=== PATIENT | female | born 1935 | race Caucasian/White ===

== ENCOUNTER 2018-03-04 17:37 | Inpatient (IN) | payer OTHER ==
[~2018-03-04] VITALS: Ht 165.1 cm; Wt 97.7 kg
[~2018-03-04 17:37] MED LIST: ALBIPROI INH; ALBU90OI INH; ASCO500 PO; ASPI325 PO; ATOR20 PO; AZIT250 PO; BECL40OI INH; BENZ100A PO; CALCAVITD PO; CALCIUM 500 +1 EAC2 PO; CALCIUM CIT-VI1 EAC1 PO; CETI10 PO; CETI5 PO; CHOL10002; CHOL10002 PO; CLOP75; CODGUAEL PO; CYAN1000 PO; CYAN500 PO; Citrate Of Mag300 ML PO; DIPASPER PO; DOCU100 PO; FISH1000 PO; FLUSAL2505 IH; FLUSAL2505 INH; FLUT.05NI; GABA100 PO; GLIP5; GLIP5 PO; GUAI200 PO; Glucophage1000 MG PO; HYDACE5 PO; Hair, Skin & N1 EACH PO; INSLI100I SC; INSULANI SC; INSULANPEN SC; ISOMON20 PO; ISOMON60ER PO; LEVFLO500 PO; LEVSOD25; LEVSOD75 PO; LOVA40 PO; MAGNESIUM WITH ZINC PO; MAGOXI400 PO; MECL12.5 PO; MECL25 PO; MELA3 PO; METF500; METF500 PO; METO100ER PO; METO50ER PO; METPRE4DP PO; MULVITMINF PO; NAPR220 PO; NITR.4SL SL; Nitrostat0.4 MG SL; Norco 5-325 Ta1 EACH PO; OMEP20ER PO; OMEPRAZOLE MAGN20 MG PO; OXYACE5T PO; PRED10 PO; Percocet 5-3251 EACH PO; QUIN10 PO; RXOXYACE PO; Senna8.6 M1 PO; Super B-50 Com1 EACH PO; TRAM50 PO; Triamcinolone A15 GM TOP; VENL75ER PO; VITB2 PO; Vitamin C1000 M1 PO; ZOLP5 PO
[2018-03-04 18:59] LABS: BASOPHILS ABSOLUTE AUTO 0.03 K/mm3 (0.00-0.23); BASOPHILS PERCENT AUTO 1 % (0-2); EOSINOPHILS ABSOLUTE AUTO 0.19 K/mm3 (0.00-0.68); EOSINOPHILS PERCENT AUTO 3 % (0-6); Hematocrit 35.7 % (33.0-51.0); Hemoglobin 11.9 g/dL (11.5-16.0); IMMATURE GRAN ABSOLUTE AUTO 0.01 K/mm3 (0.00-0.10); IMMATURE GRAN PERCENT AUTO 0 % (0-1); LYMPHOCYTES ABSOLUTE AUTO 1.49 K/mm3 (0.84-5.20); LYMPHOCYTES PERCENT AUTO 23 % (21-46); MONOCYTES PERCENT AUTO 8 % (4-13); Mean Corpuscular HGB 33.4 pg (26.0-34.0); Mean Corpuscular HGB Conc 33.3 g/dL (31.5-36.5); Mean Corpuscular Volume 100 fL (80-100); Mean Platelet Volume 9.9 fL (9.1-12.4); NEUTROPHILS ABSOLUTE AUTO 4.41 K/mm3 (1.96-9.15); NEUTROPHILS PERCENT AUTO 66 % (41-73); Platelet Count 227 K/mm3 (150-400); RDW Coefficient Variation 12.8 % (11.7-14.2); RDW Standard Deviation 46.5 fL (35.1-46.3); Red Blood Cell Count 3.56 M/mm3 (3.80-5.20); White Blood Cell Count 6.63 K/mm3 (4.00-11.30)
[2018-03-04 19:19] LABS: Alanine Aminotransfer (ALT/SGP 14 U/L (12-78); Albumin/Globulin Ratio 0.9 (0.8-1.8); Alk Phos 81 U/L (50-136); Anion Gap 6 mmol/L (6-16); Aspartate Aminotrans (AST/SGOT 18 U/L (12-37); Bilirubin, Total 0.3 mg/dL (0.1-1.0); Blood Urea Nitrogen 17 mg/dL (8-24); Bun/Creatinine Ratio 18.7 (12.0-20.0); CO2, Blood 30 mmol/L (21-32); Calcium, Blood 8.7 mg/dL (8.5-10.1); Chloride, Blood 105 mmol/L (98-108); Creatinine, Blood 0.91 mg/dL (0.40-1.00); Globulin, Blood 3.3 g/dL (2.2-4.0); Glomerular Filtration Rate >60 (60-); Glucose, Blood 103 mg/dL (70-99); Potassium, Blood 4.4 mmol/L (3.5-5.5); Sodium, Blood 141 mmol/L (136-145); Total Protein, Blood 6.3 g/dL (6.4-8.2)
[2018-03-05 01:03] LABS: BASOPHILS ABSOLUTE AUTO 0.03 K/mm3 (0.00-0.23); BASOPHILS PERCENT AUTO 0 % (0-2); EOSINOPHILS ABSOLUTE AUTO 0.14 K/mm3 (0.00-0.68); EOSINOPHILS PERCENT AUTO 2 % (0-6); Hematocrit 34.9 % (33.0-51.0); Hemoglobin 11.5 g/dL (11.5-16.0); IMMATURE GRAN ABSOLUTE AUTO 0.02 K/mm3 (0.00-0.10); IMMATURE GRAN PERCENT AUTO 0 % (0-1); LYMPHOCYTES ABSOLUTE AUTO 1.48 K/mm3 (0.84-5.20); LYMPHOCYTES PERCENT AUTO 21 % (21-46); MONOCYTES ABSOLUTE AUTO 0.51 K/mm3 (0.16-1.47); MONOCYTES PERCENT AUTO 7 % (4-13); Mean Corpuscular Volume 100 fL (80-100); Mean Platelet Volume 9.7 fL (9.1-12.4); NEUTROPHILS ABSOLUTE AUTO 5.05 K/mm3 (1.96-9.15); NEUTROPHILS PERCENT AUTO 70 % (41-73); Platelet Count 214 K/mm3 (150-400); RDW Coefficient Variation 12.7 % (11.7-14.2); RDW Standard Deviation 46.4 fL (35.1-46.3); Red Blood Cell Count 3.48 M/mm3 (3.80-5.20); White Blood Cell Count 7.23 K/mm3 (4.00-11.30)
[2018-03-05 01:18] LABS: Anion Gap 8 mmol/L (6-16); Blood Urea Nitrogen 17 mg/dL (8-24); Bun/Creatinine Ratio 20.2 (12.0-20.0); CO2, Blood 30 mmol/L (21-32); Calcium, Blood 8.4 mg/dL (8.5-10.1); Chloride, Blood 105 mmol/L (98-108); Creatinine, Blood 0.84 mg/dL (0.40-1.00); Glomerular Filtration Rate >60 (60-); Glucose, Blood 95 mg/dL (70-99); Potassium, Blood 3.9 mmol/L (3.5-5.5); Sodium, Blood 143 mmol/L (136-145)
[2018-03-05 09:06] LABS: International Normalized Ratio 1.02; Prothrombin Time Results 10.5 Sec (9.7-11.5)
[2018-03-06] MEDS ORDERED: METO50ER PO (14:35)
[2018-03-06] MEDS ORDERED: CLOP75 PO (14:41)
== END 2018-03-06 15:53 | disposition home or self-care (01) | DRG 247 ==
LOC: ER 17:37 → PCU 20:24
PROVIDERS: Emergency Medicine; Internal Medicine Cardiovascular Disease; Nurse Practitioner Acute Care
PROC: B2101ZZ Fluoroscopy of Single Coronary Artery using Low Osmolar Contrast (ICD-10-PCS; principal; 2018-03-05)
PROC: 4A023N7 Measurement of Cardiac Sampling and Pressure, Left Heart, Percutaneous Approach (ICD-10-PCS; 2018-03-05)
PROC: 027034Z Dilation of Coronary Artery, One Artery with Drug-eluting Intraluminal Device, Percutaneous Approach (ICD-10-PCS; 2018-03-05)
PROC: B240ZZ3 Ultrasonography of Single Coronary Artery, Intravascular (ICD-10-PCS; 2018-03-05)
DX: I21.4 Non-ST elevation (NSTEMI) myocardial infarction (principal); Q21.1 Atrial septal defect; J44.9 Chronic obstructive pulmonary disease, unspecified; Z99.81 Dependence on supplemental oxygen; I25.2 Old myocardial infarction; Z95.5 Presence of coronary angioplasty implant and graft; G47.33 Obstructive sleep apnea (adult) (pediatric); I25.10 Atherosclerotic heart disease of native coronary artery without angina pectoris; F32.9 Major depressive disorder, single episode, unspecified; E03.9 Hypothyroidism, unspecified; E11.40 Type 2 diabetes mellitus with diabetic neuropathy, unspecified; I10 Essential (primary) hypertension; K21.9 Gastro-esophageal reflux disease without esophagitis; R09.02 Hypoxemia; E66.3 Overweight; Z68.30 Body mass index [BMI] 30.0-30.9, adult; E11.610 Type 2 diabetes mellitus with diabetic neuropathic arthropathy; E11.649 Type 2 diabetes mellitus with hypoglycemia without coma; Z79.01 Long term (current) use of anticoagulants; Z79.82 Long term (current) use of aspirin; Z79.4 Long term (current) use of insulin
CPT/HCPCS: 36415; 71046; 80048; 80053; 82947; 83880; 84484; 85025; 85347; 85610; 85730; 86850; 86900; 86901; 92978; 93005; 93010; 93306; 93458; 94640; 94760; 96365; 97116; 97161; 99152; 99153; 99285-25; C1725; C1753; C1769; C1874; C1894; C9600; G8978; G8979; G8980; J0360; J1644; J2250; J3010; J7030; Q9967

== ENCOUNTER 2018-03-15 19:21 | Inpatient (IN) | payer OTHER ==
[~2018-03-15] VITALS: Ht 165.1 cm; Wt 92.6 kg
[~2018-03-15 19:21] MED LIST changes: +CLOP75 PO
[2018-03-15 19:33] LABS: BASOPHILS ABSOLUTE AUTO 0.06 K/mm3 (0.00-0.23); BASOPHILS PERCENT AUTO 1 % (0-2); EOSINOPHILS ABSOLUTE AUTO 0.29 K/mm3 (0.00-0.68); EOSINOPHILS PERCENT AUTO 3 % (0-6); Hematocrit 37.2 % (33.0-51.0); Hemoglobin 12.3 g/dL (11.5-16.0); IMMATURE GRAN ABSOLUTE AUTO 0.03 K/mm3 (0.00-0.10); IMMATURE GRAN PERCENT AUTO 0 % (0-1); LYMPHOCYTES ABSOLUTE AUTO 1.57 K/mm3 (0.84-5.20); LYMPHOCYTES PERCENT AUTO 19 % (21-46); MONOCYTES PERCENT AUTO 8 % (4-13); Mean Corpuscular HGB 33.3 pg (26.0-34.0); Mean Corpuscular HGB Conc 33.1 g/dL (31.5-36.5); Mean Corpuscular Volume 101 fL (80-100); NEUTROPHILS ABSOLUTE AUTO 5.76 K/mm3 (1.96-9.15); NEUTROPHILS PERCENT AUTO 69 % (41-73); Platelet Count 252 K/mm3 (150-400); RDW Coefficient Variation 12.6 % (11.7-14.2); RDW Standard Deviation 46.9 fL (35.1-46.3); Red Blood Cell Count 3.69 M/mm3 (3.80-5.20); White Blood Cell Count 8.41 K/mm3 (4.00-11.30)
[2018-03-15 19:57] LABS: Alanine Aminotransfer (ALT/SGP 17 U/L (12-78); Albumin, Blood 3.2 g/dL (3.4-5.0); Albumin/Globulin Ratio 0.9 (0.8-1.8); Alk Phos 89 U/L (50-136); Anion Gap 10 mmol/L (6-16); Aspartate Aminotrans (AST/SGOT 16 U/L (12-37); Bilirubin, Total 0.4 mg/dL (0.1-1.0); Blood Urea Nitrogen 15 mg/dL (8-24); Bun/Creatinine Ratio 16.4 (12.0-20.0); CO2, Blood 26 mmol/L (21-32); Calcium, Blood 8.5 mg/dL (8.5-10.1); Chloride, Blood 104 mmol/L (98-108); Creatinine, Blood 0.91 mg/dL (0.40-1.00); Globulin, Blood 3.6 g/dL (2.2-4.0); Glomerular Filtration Rate >60 (60-); Glucose, Blood 166 mg/dL (70-99); Potassium, Blood 3.9 mmol/L (3.5-5.5); Sodium, Blood 140 mmol/L (136-145); Total Protein, Blood 6.8 g/dL (6.4-8.2)
[2018-03-15] MEDS ORDERED: ASPI81CH PO (21:19)
[2018-03-15] MEDS ORDERED: FLUT1DIS5 INH (21:20)
[2018-03-15] MEDS ORDERED: ATOR20 PO (21:20)
[2018-03-15] MEDS ORDERED: TICA90TA (21:21)
[2018-03-15] MEDS ORDERED: Combigan Eye Dro5 ML (21:21)
[2018-03-15] MEDS ORDERED: Flonase 0.05% N16 GM (21:22)
[2018-03-15] MEDS ORDERED: GABA400 PO (21:23)
[2018-03-15] MEDS ORDERED: INSULANPEN SC (21:24)
[2018-03-15] MEDS ORDERED: Icaps Areds Fo1 EACH PO (21:24)
[2018-03-15] MEDS ORDERED: LEVSOD75 PO (21:25)
[2018-03-15] MEDS ORDERED: METF500C PO (21:25)
[2018-03-15] MEDS ORDERED: METO50ER PO (21:26)
[2018-03-15] MEDS ORDERED: OMEPRAZOLE MAGN20 MG PO (21:26)
[2018-03-15] MEDS ORDERED: ALBU90OI6 INH (21:27)
[2018-03-15] MEDS ORDERED: VENLAFAXINE HCL75 MG PO (21:28)
[2018-03-15] MEDS ORDERED: XARELTO15 MG PO (21:28)
[2018-03-15 22:32] LABS: CPK Creatine Kinase 51 U/L (26-193); Creatine Kinase MB 1.1 ng/mL (0.0-3.6); Creatine Kinase MB Index 2.2 (0.0-4.0)
[2018-03-15 23:08] LABS: International Normalized Ratio 1.04; Prothrombin Time Results 10.7 Sec (9.7-11.5)
[2018-03-15] MEDS ORDERED: ISOMON20 PO (23:14)
[2018-03-15] MEDS ORDERED: CHOL10002 PO (23:15)
[2018-03-15] MEDS ORDERED: DOCU100 PO (23:16)
[2018-03-16 02:36] LABS: Hematocrit 34.5 % (33.0-51.0); Hemoglobin 11.6 g/dL (11.5-16.0); Mean Corpuscular HGB 33.5 pg (26.0-34.0); Mean Corpuscular HGB Conc 33.6 g/dL (31.5-36.5); Mean Corpuscular Volume 100 fL (80-100); Mean Platelet Volume 9.8 fL (9.1-12.4); Platelet Count 217 K/mm3 (150-400); RDW Coefficient Variation 12.6 % (11.7-14.2); RDW Standard Deviation 45.9 fL (35.1-46.3); Red Blood Cell Count 3.46 M/mm3 (3.80-5.20); White Blood Cell Count 7.25 K/mm3 (4.00-11.30)
[2018-03-16 02:51] LABS: Anion Gap 5 mmol/L (6-16); Blood Urea Nitrogen 13 mg/dL (8-24); CO2, Blood 31 mmol/L (21-32); Calcium, Blood 7.9 mg/dL (8.5-10.1); Chloride, Blood 107 mmol/L (98-108); Creatinine, Blood 0.77 mg/dL (0.40-1.00); Glomerular Filtration Rate >60 (60-); Glucose, Blood 85 mg/dL (70-99); Potassium, Blood 3.7 mmol/L (3.5-5.5); Sodium, Blood 143 mmol/L (136-145)
[2018-03-16 02:58] LABS: Creatine Kinase MB 1.1 ng/mL (0.0-3.6); Creatine Kinase MB Index 2.5 (0.0-4.0)
[2018-03-16 03:16] LABS: Troponin I 1.02 ng/mL (0.000-0.040)
[2018-03-16 08:43] LABS: CPK Creatine Kinase 49 U/L (26-193)
[2018-03-16 08:54] LABS: Creatine Kinase MB < 1.0 ng/mL (0.0-3.6)
== END 2018-03-17 13:45 | disposition home or self-care (01) | DRG 281 ==
LOC: ER 19:21 → PCU 21:04
PROVIDERS: Emergency Medicine; Nurse Practitioner Acute Care
DX: I21.4 Non-ST elevation (NSTEMI) myocardial infarction (principal); J96.11 Chronic respiratory failure with hypoxia; I25.10 Atherosclerotic heart disease of native coronary artery without angina pectoris; I10 Essential (primary) hypertension; Z95.1 Presence of aortocoronary bypass graft; I48.91 Unspecified atrial fibrillation; Z79.01 Long term (current) use of anticoagulants; E03.9 Hypothyroidism, unspecified; F32.9 Major depressive disorder, single episode, unspecified; Z79.4 Long term (current) use of insulin; J44.9 Chronic obstructive pulmonary disease, unspecified; Z99.81 Dependence on supplemental oxygen; E11.42 Type 2 diabetes mellitus with diabetic polyneuropathy; K21.9 Gastro-esophageal reflux disease without esophagitis; G47.33 Obstructive sleep apnea (adult) (pediatric); Z86.73 Personal history of transient ischemic attack (TIA), and cerebral infarction without residual deficits; Z79.82 Long term (current) use of aspirin; I48.0 Paroxysmal atrial fibrillation; E78.5 Hyperlipidemia, unspecified
CPT/HCPCS: 36415; 71045; 80048; 80053; 82550; 82553; 82947; 84484; 85025; 85027; 85610; 85730; 93005; 93010; 93308; 93321; 94640; 94760; 99285-25; J1644; J7030

== ENCOUNTER 2018-03-24 15:52 | Observation (INO) | payer OTHER ==
[~2018-03-24] VITALS: Ht 165.1 cm; Wt 89.0 kg
[~2018-03-24 15:52] MED LIST changes: +ALBU90OI6 INH; +ASPI81CH PO; +Combigan Eye Dro5 ML; +FLUT1DIS5 INH; +Flonase 0.05% N16 GM; +GABA400 PO; +Icaps Areds Fo1 EACH PO; +METF500C PO; +TICA90TA PO; +VENLAFAXINE HCL75 MG PO; +XARELTO15 MG PO
[2018-03-24 16:21] LABS: BASOPHILS ABSOLUTE AUTO 0.03 K/mm3 (0.00-0.23); BASOPHILS PERCENT AUTO 0 % (0-2); EOSINOPHILS ABSOLUTE AUTO 0.22 K/mm3 (0.00-0.68); EOSINOPHILS PERCENT AUTO 3 % (0-6); Hematocrit 36.8 % (33.0-51.0); Hemoglobin 12.3 g/dL (11.5-16.0); IMMATURE GRAN ABSOLUTE AUTO 0.02 K/mm3 (0.00-0.10); IMMATURE GRAN PERCENT AUTO 0 % (0-1); LYMPHOCYTES ABSOLUTE AUTO 0.95 K/mm3 (0.84-5.20); LYMPHOCYTES PERCENT AUTO 14 % (21-46); MONOCYTES ABSOLUTE AUTO 0.61 K/mm3 (0.16-1.47); MONOCYTES PERCENT AUTO 9 % (4-13); Mean Corpuscular HGB 33.5 pg (26.0-34.0); Mean Corpuscular HGB Conc 33.4 g/dL (31.5-36.5); Mean Corpuscular Volume 100 fL (80-100); Mean Platelet Volume 9.9 fL (9.1-12.4); NEUTROPHILS ABSOLUTE AUTO 4.84 K/mm3 (1.96-9.15); NEUTROPHILS PERCENT AUTO 73 % (41-73); Platelet Count 234 K/mm3 (150-400); RDW Coefficient Variation 12.5 % (11.7-14.2); RDW Standard Deviation 45.7 fL (35.1-46.3); Red Blood Cell Count 3.67 M/mm3 (3.80-5.20); White Blood Cell Count 6.67 K/mm3 (4.00-11.30)
[2018-03-24 16:42] LABS: Alanine Aminotransfer (ALT/SGP 17 U/L (12-78); Albumin, Blood 3.2 g/dL (3.4-5.0); Albumin/Globulin Ratio 0.9 (0.8-1.8); Alk Phos 101 U/L (50-136); Anion Gap 9 mmol/L (6-16); Aspartate Aminotrans (AST/SGOT 15 U/L (12-37); Bilirubin, Total 0.4 mg/dL (0.1-1.0); Blood Urea Nitrogen 21 mg/dL (8-24); Bun/Creatinine Ratio 24.2 (12.0-20.0); CO2, Blood 28 mmol/L (21-32); Calcium, Blood 8.8 mg/dL (8.5-10.1); Chloride, Blood 103 mmol/L (98-108); Creatinine, Blood 0.87 mg/dL (0.40-1.00); Globulin, Blood 3.6 g/dL (2.2-4.0); Glomerular Filtration Rate >60 (60-); Glucose, Blood 185 mg/dL (70-99); Potassium, Blood 4.1 mmol/L (3.5-5.5); Sodium, Blood 140 mmol/L (136-145); Total Protein, Blood 6.8 g/dL (6.4-8.2)
[2018-03-25 04:10] LABS: Hematocrit 34.5 % (33.0-51.0); Hemoglobin 11.3 g/dL (11.5-16.0)
[2018-03-25 04:33] LABS: Anion Gap 10 mmol/L (6-16); Blood Urea Nitrogen 16 mg/dL (8-24); Bun/Creatinine Ratio 22.6 (12.0-20.0); CO2, Blood 28 mmol/L (21-32); Calcium, Blood 8.1 mg/dL (8.5-10.1); Chloride, Blood 106 mmol/L (98-108); Creatinine, Blood 0.71 mg/dL (0.40-1.00); Glomerular Filtration Rate >60 (60-); Glucose, Blood 51 mg/dL (70-99); Potassium, Blood 3.7 mmol/L (3.5-5.5); Sodium, Blood 144 mmol/L (136-145)
[2018-03-25 09:19] LABS: CPK Creatine Kinase 32 U/L (26-193)
[2018-03-25 09:33] LABS: Creatine Kinase MB < 1.0 ng/mL (0.0-3.6); Creatine Kinase MB Index 3.1 (0.0-4.0)
[2018-03-26] MEDS ORDERED: Alphagan P5 ML BOTHEYES (03:50)
[2018-03-26 09:09] LABS: CPK Creatine Kinase 35 U/L (26-193)
[2018-03-26 09:16] LABS: Creatine Kinase MB < 1.0 ng/mL (0.0-3.6); Creatine Kinase MB Index 2.9 (0.0-4.0)
[2018-03-26] MEDS ORDERED: ACET325 PO (11:41)
[2018-03-26] MEDS ORDERED: GAVILAX17 GM PO (11:42)
== END 2018-03-26 14:16 | disposition home or self-care (01) ==
LOC: ER 15:52 → PCU 15:53
PROVIDERS: Emergency Medicine; Family Medicine; Hospitalist
DX: I22.2 Subsequent non-ST elevation (NSTEMI) myocardial infarction (principal); I21.4 Non-ST elevation (NSTEMI) myocardial infarction; E11.9 Type 2 diabetes mellitus without complications; K21.9 Gastro-esophageal reflux disease without esophagitis; J44.9 Chronic obstructive pulmonary disease, unspecified; E03.9 Hypothyroidism, unspecified; E11.40 Type 2 diabetes mellitus with diabetic neuropathy, unspecified; I25.10 Atherosclerotic heart disease of native coronary artery without angina pectoris; I10 Essential (primary) hypertension; I48.0 Paroxysmal atrial fibrillation; E78.5 Hyperlipidemia, unspecified; J96.11 Chronic respiratory failure with hypoxia; Z99.81 Dependence on supplemental oxygen; Z79.82 Long term (current) use of aspirin; Z79.899 Other long term (current) drug therapy; Z88.5 Allergy status to narcotic agent; Z95.5 Presence of coronary angioplasty implant and graft; Z99.89 Dependence on other enabling machines and devices
CPT/HCPCS: 36415; 71046; 80048; 80053; 82550; 82553; 82947; 83880; 84484; 85014; 85018; 85025; 93005; 93010; 94640; 94760; 99285-25; G0378

== ENCOUNTER 2018-04-07 09:22 | Emergency (ER) | payer OTHER ==
[~2018-04-07] VITALS: Ht 162.6 cm; Wt 86.2 kg
[~2018-04-07 09:22] MED LIST changes: +ACET325 PO; +Alphagan P5 ML BOTHEYES; +GAVILAX17 GM PO
[2018-04-07 10:00] LABS: BASOPHILS ABSOLUTE AUTO 0.05 K/mm3 (0.00-0.23); BASOPHILS PERCENT AUTO 1 % (0-2); EOSINOPHILS ABSOLUTE AUTO 0.29 K/mm3 (0.00-0.68); EOSINOPHILS PERCENT AUTO 5 % (0-6); Hematocrit 34.5 % (33.0-51.0); Hemoglobin 11.4 g/dL (11.5-16.0); IMMATURE GRAN ABSOLUTE AUTO 0.03 K/mm3 (0.00-0.10); IMMATURE GRAN PERCENT AUTO 1 % (0-1); LYMPHOCYTES ABSOLUTE AUTO 0.88 K/mm3 (0.84-5.20); LYMPHOCYTES PERCENT AUTO 15 % (21-46); MONOCYTES ABSOLUTE AUTO 0.66 K/mm3 (0.16-1.47); MONOCYTES PERCENT AUTO 11 % (4-13); Mean Corpuscular HGB 33.1 pg (26.0-34.0); Mean Corpuscular Volume 100 fL (80-100); Mean Platelet Volume 9.7 fL (9.1-12.4); NEUTROPHILS ABSOLUTE AUTO 4.14 K/mm3 (1.96-9.15); NEUTROPHILS PERCENT AUTO 69 % (41-73); Platelet Count 237 K/mm3 (150-400); RDW Coefficient Variation 12.2 % (11.7-14.2); RDW Standard Deviation 44.7 fL (35.1-46.3); Red Blood Cell Count 3.44 M/mm3 (3.80-5.20); White Blood Cell Count 6.05 K/mm3 (4.00-11.30)
[2018-04-07 10:16] LABS: Alanine Aminotransfer (ALT/SGP 19 U/L (12-78); Albumin, Blood 2.9 g/dL (3.4-5.0); Albumin/Globulin Ratio 0.8 (0.8-1.8); Alk Phos 104 U/L (50-136); Anion Gap 7 mmol/L (6-16); Aspartate Aminotrans (AST/SGOT 16 U/L (12-37); Bilirubin, Total 0.3 mg/dL (0.1-1.0); Blood Urea Nitrogen 19 mg/dL (8-24); CO2, Blood 30 mmol/L (21-32); Calcium, Blood 8.4 mg/dL (8.5-10.1); Chloride, Blood 105 mmol/L (98-108); Creatinine, Blood 0.76 mg/dL (0.40-1.00); Globulin, Blood 3.8 g/dL (2.2-4.0); Glomerular Filtration Rate >60 (60-); Glucose, Blood 78 mg/dL (70-99); Potassium, Blood 4.1 mmol/L (3.5-5.5); Sodium, Blood 142 mmol/L (136-145); Total Protein, Blood 6.7 g/dL (6.4-8.2)
[2018-04-07 10:31] LABS: Troponin I 0.717 ng/mL (0.000-0.040)
== END 2018-04-07 13:10 | disposition home or self-care (01) ==
LOC: ER 09:22
PROVIDERS: Emergency Medicine
DX: R07.9 Chest pain, unspecified (principal); I25.10 Atherosclerotic heart disease of native coronary artery without angina pectoris; E11.9 Type 2 diabetes mellitus without complications; J44.9 Chronic obstructive pulmonary disease, unspecified; I25.2 Old myocardial infarction; Z86.73 Personal history of transient ischemic attack (TIA), and cerebral infarction without residual deficits; Z88.5 Allergy status to narcotic agent; Z88.2 Allergy status to sulfonamides; Z88.8 Allergy status to other drugs, medicaments and biological substances; Z79.899 Other long term (current) drug therapy; Z79.82 Long term (current) use of aspirin; Z79.4 Long term (current) use of insulin
CPT/HCPCS: 71045; 80053; 83880; 84484; 85025; 93005; 93010; 99285-25

== ENCOUNTER 2018-12-25 03:38 | Observation (INO) | payer OTHER ==
[~2018-12-25] VITALS: Ht 165.1 cm; Wt 87.1 kg
[~2018-12-25 03:38] MED LIST changes: +GABA300 PO; -GABA400 PO; +Isosorbide Mono60 MG PO
[2018-12-25] MEDS ORDERED: VENL75ER PO (04:01)
[2018-12-25 04:06] LABS: BASOPHILS ABSOLUTE AUTO 0.05 K/mm3 (0.00-0.23); BASOPHILS PERCENT AUTO 1 % (0-2); EOSINOPHILS ABSOLUTE AUTO 0.16 K/mm3 (0.00-0.68); EOSINOPHILS PERCENT AUTO 3 % (0-6); IMMATURE GRAN ABSOLUTE AUTO 0.02 K/mm3 (0.00-0.10); IMMATURE GRAN PERCENT AUTO 0 % (0-1); LYMPHOCYTES ABSOLUTE AUTO 1.39 K/mm3 (0.84-5.20); LYMPHOCYTES PERCENT AUTO 22 % (21-46); MONOCYTES ABSOLUTE AUTO 0.58 K/mm3 (0.16-1.47); MONOCYTES PERCENT AUTO 9 % (4-13); Mean Corpuscular HGB 30.6 pg (26.0-34.0); Mean Corpuscular HGB Conc 31.4 g/dL (31.5-36.5); Mean Corpuscular Volume 98 fL (80-100); Mean Platelet Volume 10.3 fL (9.1-12.4); NEUTROPHILS ABSOLUTE AUTO 4.08 K/mm3 (1.96-9.15); NEUTROPHILS PERCENT AUTO 65 % (41-73); Platelet Count 236 K/mm3 (150-400); RDW Coefficient Variation 13.1 % (11.7-14.2); RDW Standard Deviation 45.6 fL (35.1-46.3); Red Blood Cell Count 3.59 M/mm3 (3.80-5.20); White Blood Cell Count 6.28 K/mm3 (4.00-11.30)
[2018-12-25 04:20] LABS: Albumin, Blood 3.1 g/dL (3.4-5.0); Albumin/Globulin Ratio 0.9 (0.8-1.8); Bilirubin, Total 0.3 mg/dL (0.1-1.0); Bun/Creatinine Ratio 15.8 (12.0-20.0); Calcium, Blood 8.3 mg/dL (8.5-10.1); Creatinine, Blood 1.01 mg/dL (0.40-1.00); Globulin, Blood 3.4 g/dL (2.2-4.0); Potassium, Blood 3.7 mmol/L (3.5-5.5); Total Protein, Blood 6.5 g/dL (6.4-8.2); Troponin I 0.123 ng/mL (0.000-0.040)
[2018-12-25] MEDS ORDERED: Neurontin 300300 MG PO (08:12)
[2018-12-25] MEDS ORDERED: AMLO5 PO (08:16)
[2018-12-25 12:25] LABS: Troponin I 0.135 ng/mL (0.000-0.040)
--- NOTE | 2018-12-25 16:03 | NUR ---
SUMMARY NEW ER ADMIT THIS AM. STATE L CHEST PAIN EARLY THIS AM, TOOK NITRO X3 & CAME TO ER. CHEST PAIN RESOLVED WHILE IN ER. SHE STATE NO CHEST PAIN T/O DAY EXCEPT FOR 1 VERY BRIEF INSTANT AROUND NOON TODAY, STATE LAST ONLY SECONDS, NO CHANGE ON TELE, SR 70'S. DR MCKEE IN TO SEE HER SHORTLY AFTER INCIDENT, REVIEW LABS & TX, STATE NO SIGNIFICANT ELEVATION IN TROPONIN IN SETTING OF RECENT DC LAST YEAR, STATE WILL CONTINUE TO MX OVERNITE. VSS. PT HAS BEEN PLEASANT/COOPERATIVE T/O DAY. CAREGIVER & DAUGHTER HAVE BEEN SUPPORTIVE.
[2018-12-25 21:12] LABS: Troponin I 0.136 ng/mL (0.000-0.040)
--- NOTE | 2018-12-26 01:05 | NUR ---
~0040 TRANSFERED PATIENT CARE TO DEJA INGRAM RN. REPORT GIVEN. PATIENT A/O, ABLE TO MAKE NEEDS KNOWN. COOPERATIVE WITH CARE. ANSWERS QUESTIONS APPROPRIATELY. UP TO THE BATHROOM WITH FWW. NO ACUTE CHANGES AT TIME OF TRANSFER.
[2018-12-26 05:34] LABS: BASOPHILS ABSOLUTE AUTO 0.03 K/mm3 (0.00-0.23); BASOPHILS PERCENT AUTO 1 % (0-2); EOSINOPHILS ABSOLUTE AUTO 0.19 K/mm3 (0.00-0.68); EOSINOPHILS PERCENT AUTO 3 % (0-6); Hematocrit 33.5 % (33.0-51.0); Hemoglobin 10.8 g/dL (11.5-16.0); IMMATURE GRAN ABSOLUTE AUTO 0.02 K/mm3 (0.00-0.10); IMMATURE GRAN PERCENT AUTO 0 % (0-1); LYMPHOCYTES ABSOLUTE AUTO 1.34 K/mm3 (0.84-5.20); LYMPHOCYTES PERCENT AUTO 22 % (21-46); MONOCYTES ABSOLUTE AUTO 0.54 K/mm3 (0.16-1.47); MONOCYTES PERCENT AUTO 9 % (4-13); Mean Corpuscular HGB Conc 32.2 g/dL (31.5-36.5); Mean Corpuscular Volume 96 fL (80-100); Mean Platelet Volume 10.8 fL (9.1-12.4); NEUTROPHILS PERCENT AUTO 65 % (41-73); Platelet Count 205 K/mm3 (150-400); RDW Standard Deviation 44.5 fL (35.1-46.3); Red Blood Cell Count 3.48 M/mm3 (3.80-5.20); White Blood Cell Count 6.12 K/mm3 (4.00-11.30)
[2018-12-26 05:49] LABS: Alanine Aminotransfer (ALT/SGP 13 U/L (12-78); Albumin, Blood 2.9 g/dL (3.4-5.0); Albumin/Globulin Ratio 0.9 (0.8-1.8); Alk Phos 99 U/L (50-136); Anion Gap 7 mmol/L (6-16); Aspartate Aminotrans (AST/SGOT 9 U/L (12-37); Bilirubin, Total 0.4 mg/dL (0.1-1.0); Blood Urea Nitrogen 13 mg/dL (8-24); Bun/Creatinine Ratio 17.9 (12.0-20.0); CO2, Blood 29 mmol/L (21-32); Calcium, Blood 8.4 mg/dL (8.5-10.1); Chloride, Blood 107 mmol/L (98-108); Creatinine, Blood 0.73 mg/dL (0.40-1.00); Globulin, Blood 3.2 g/dL (2.2-4.0); Glomerular Filtration Rate >60 (60-); Glucose, Blood 93 mg/dL (70-99); Magnesium, Blood 1.3 mg/dL (1.6-2.4); Phosphorus, Blood 3.5 mg/dL (2.5-4.9); Potassium, Blood 3.5 mmol/L (3.5-5.5); Sodium, Blood 143 mmol/L (136-145); Total Protein, Blood 6.1 g/dL (6.4-8.2)
[2018-12-26 05:50] LABS: Troponin I 0.132 ng/mL (0.000-0.040)
--- NOTE | 2018-12-26 07:19 | NUR ---
SHIFT SUMMARY PT IS AN 83 Y/O FEMALE, ADMITTED FOR CHEST PAIN. SHE IS A&O X 3, AND A SBA IN THE ROOM. PT WAS TRANSFERED FROM [facility] TO [facility] AT 0055. FAMILY NOTIFIED OF TRANSFER. PT DENIED ANY COMPLAINTS OF CHEST PAIN, SOB OR NAUSEA. SHE REMAINED ON 3.5L OF O2, AND VITALS REMAINED STABLE. NO OTHER ACUTE CHANGES NOTED SINCE TRANSFER. REPORT GIVEN TO ONCOMING NURSE.
--- NOTE | 2018-12-26 18:47 | NUR ---
DISCHARGE PT DISCHARGED TO HOME. THIS RN EXPLAINED DISCHARGE INSTRUCTIONS AND MEDICATIONS TO PT AND SHE REPORTS SHE UNDERSTANDS. IV REMOVED WITHOUT DIFFICULTY. NO NEW MEDICATIONS AT THIS TIME. PT TRANSFERRED TO PRIVATE VEHICLE VIA WHEELCHAIR.
--- NOTE | 2018-12-26 18:52 | NUR ---
EVENING MEDS PT DECLINED TO TAKE EVENING MEDICATIONS. SHE REPORTS SHE WANTED TO EAT AT HOME AND WILL TAKE THEM THEN.
== END 2018-12-26 18:27 | disposition home or self-care (01) ==
LOC: ER 03:38 → MEDS 03:39
PROVIDERS: Emergency Medicine; ADMIT Internal Medicine
DX: R07.89 Other chest pain (principal); R77.8 Other specified abnormalities of plasma proteins; I10 Essential (primary) hypertension; E11.40 Type 2 diabetes mellitus with diabetic neuropathy, unspecified; I25.10 Atherosclerotic heart disease of native coronary artery without angina pectoris; I25.2 Old myocardial infarction; E03.9 Hypothyroidism, unspecified; F32.9 Major depressive disorder, single episode, unspecified; E78.5 Hyperlipidemia, unspecified; J44.9 Chronic obstructive pulmonary disease, unspecified; K21.9 Gastro-esophageal reflux disease without esophagitis; Z86.73 Personal history of transient ischemic attack (TIA), and cerebral infarction without residual deficits; Z79.899 Other long term (current) drug therapy; Z79.84 Long term (current) use of oral hypoglycemic drugs; Z88.8 Allergy status to other drugs, medicaments and biological substances; Z88.5 Allergy status to narcotic agent; Z88.2 Allergy status to sulfonamides
CPT/HCPCS: 36415; 71046; 80053; 82550; 82947; 83735; 83880; 84100; 84484; 85025; 85027; 93005; 93010; 94640; 94760; 99285-25; G0378

== ENCOUNTER 2019-02-14 08:22 | Observation (INO) | payer OTHER ==
[~2019-02-14] VITALS: Ht 162.6 cm; Wt 81.2 kg
[~2019-02-14 08:22] MED LIST changes: -ACET325 PO; -Alphagan P5 ML BOTHEYES; +Gabapentin600 MG PO; +Isosorbide Mono30 MG PO; -Isosorbide Mono60 MG PO; -METF500C PO; +Metformin HCl1000 MG PO; +Norvasc2.5 MG PO
[2019-02-14 08:56] LABS: BASOPHILS ABSOLUTE AUTO 0.03 K/mm3 (0.00-0.23); BASOPHILS PERCENT AUTO 0 % (0-2); EOSINOPHILS PERCENT AUTO 3 % (0-6); Hematocrit 34.1 % (33.0-51.0); Hemoglobin 10.7 g/dL (11.5-16.0); IMMATURE GRAN ABSOLUTE AUTO 0.02 K/mm3 (0.00-0.10); IMMATURE GRAN PERCENT AUTO 0 % (0-1); LYMPHOCYTES ABSOLUTE AUTO 1.07 K/mm3 (0.84-5.20); LYMPHOCYTES PERCENT AUTO 14 % (21-46); MONOCYTES ABSOLUTE AUTO 0.67 K/mm3 (0.16-1.47); MONOCYTES PERCENT AUTO 9 % (4-13); Mean Corpuscular HGB 30.7 pg (26.0-34.0); Mean Corpuscular HGB Conc 31.4 g/dL (31.5-36.5); Mean Corpuscular Volume 98 fL (80-100); NEUTROPHILS ABSOLUTE AUTO 5.79 K/mm3 (1.96-9.15); NEUTROPHILS PERCENT AUTO 74 % (41-73); Platelet Count 245 K/mm3 (150-400); RDW Coefficient Variation 13.3 % (11.7-14.2); RDW Standard Deviation 47.2 fL (35.1-46.3); Red Blood Cell Count 3.49 M/mm3 (3.80-5.20); White Blood Cell Count 7.78 K/mm3 (4.00-11.30)
[2019-02-14 09:21] LABS: Alanine Aminotransfer (ALT/SGP 14 U/L (12-78); Albumin, Blood 3.1 g/dL (3.4-5.0); Albumin/Globulin Ratio 0.9 (0.8-1.8); Alk Phos 111 U/L (50-136); Anion Gap 8 mmol/L (6-16); Aspartate Aminotrans (AST/SGOT 11 U/L (12-37); Bilirubin, Total 0.3 mg/dL (0.1-1.0); Blood Urea Nitrogen 19 mg/dL (8-24); Bun/Creatinine Ratio 23.8 (12.0-20.0); CO2, Blood 28 mmol/L (21-32); Calcium, Blood 8.8 mg/dL (8.5-10.1); Chloride, Blood 106 mmol/L (98-108); Globulin, Blood 3.5 g/dL (2.2-4.0); Glomerular Filtration Rate >60 (60-); Glucose, Blood 195 mg/dL (70-99); Potassium, Blood 3.8 mmol/L (3.5-5.5); Sodium, Blood 142 mmol/L (136-145); Total Protein, Blood 6.6 g/dL (6.4-8.2)
[2019-02-14] MEDS ORDERED: ACET325 PO (14:36)
[2019-02-14] MEDS ORDERED: Alphagan P5 ML BOTHEYES (14:44)
[2019-02-14] MEDS ORDERED: DOCU100 PO (14:47)
[2019-02-14 15:51] LABS: CPK Creatine Kinase 30 U/L (26-193)
[2019-02-14] MEDS ORDERED: MIRALAX119 GM PO (15:56)
[2019-02-14] MEDS ORDERED: FLUT1DIS5 INH (15:59)
[2019-02-14 16:13] LABS: Creatine Kinase MB <1.0 ng/mL (0.0-3.6); Creatine Kinase MB Index Unable to Calculate (0.0-4.0)
--- NOTE | 2019-02-14 18:16 | NUR ---
SHIFT SUMMARY 1420 PT RECEIVED FROM ER. ALERT AND ORIENTED X3. VSS. LUNG SOUNDS CLEAR, NSR WITH 1st HEART BLOCK ON TELEMETRY. C/O 2/10 PAIN UNDER RIGHT BREAST, PT REPOSITIONED AND PAIN WENT AWAY. 1+ PITTING EDEMA NOTED TO BLE. CAREGIVER AT BEDSIDE PART OF TODAY. PT AMBULATED WITH FWW TO BATHROOM WITH STANDBY ASSIST. ON HOME OXYGEN AT 2L VIA NC, OXYGEN SATURATIONS 95%. WILL CONTINUE TO MONITOR.
[2019-02-14 23:14] LABS: CPK Creatine Kinase 30 U/L (26-193); Creatine Kinase MB <1.0 ng/mL (0.0-3.6); Creatine Kinase MB Index Unable to Calculate (0.0-4.0)
--- NOTE | 2019-02-15 04:40 | NUR ---
ASSUMED CARE OF PATIENT AT APPROXIMATELY 1905 FROM MILAGRO Carmen RN. PATIENT ALERT AND ORIENTED X4; FORGETFUL AT TIMES. PATIENT DENIES CP/PRESSURE, PAIN ELSEWHERE, NUMBNESS, TINGLING, DIZZINESS OR NAUSEA. PATIENT SBA WITH FWW TO BATHROOM; ATTENDS PLACED PER REQUEST. PATIENT SLEPT ABOUT SEVEN HOURS LAST NIGHT. PATIENT HAS BEEN NPO SINCE MIDNIGHT FOR STRESS TEST THIS AM. EKG DONE. TROPONINS TRENDING DOWN. NSR W/ 1ST DEGREE ON TELE; MEDICAL TELE STATUS; OXYGEN SATURATION ON ROOM AIR TO 2LPM VIA NC (BASELINE); PATIENT REMOVES OXYGEN AT TIMES. VSS. PIV S/L. PATIENT CURRENTLY RESTING IN BED; CALL LIGHT IN REACH; BED ALARM ON; BED IN LOWEST POSISTION; WILL CONTINUE TO MONITOR AND ASSESS UNTIL END OF SHIFT.
[2019-02-15 07:28] LABS: BASOPHILS ABSOLUTE AUTO 0.04 K/mm3 (0.00-0.23); BASOPHILS PERCENT AUTO 1 % (0-2); EOSINOPHILS ABSOLUTE AUTO 0.22 K/mm3 (0.00-0.68); EOSINOPHILS PERCENT AUTO 3 % (0-6); Hemoglobin 11.1 g/dL (11.5-16.0); IMMATURE GRAN ABSOLUTE AUTO 0.03 K/mm3 (0.00-0.10); IMMATURE GRAN PERCENT AUTO 0 % (0-1); LYMPHOCYTES ABSOLUTE AUTO 1.23 K/mm3 (0.84-5.20); LYMPHOCYTES PERCENT AUTO 17 % (21-46); MONOCYTES ABSOLUTE AUTO 0.65 K/mm3 (0.16-1.47); MONOCYTES PERCENT AUTO 9 % (4-13); Mean Corpuscular HGB 30.5 pg (26.0-34.0); Mean Corpuscular HGB Conc 31.7 g/dL (31.5-36.5); Mean Corpuscular Volume 96 fL (80-100); Mean Platelet Volume 9.9 fL (9.1-12.4); NEUTROPHILS ABSOLUTE AUTO 5.07 K/mm3 (1.96-9.15); NEUTROPHILS PERCENT AUTO 70 % (41-73); Platelet Count 233 K/mm3 (150-400); RDW Coefficient Variation 13.2 % (11.7-14.2); RDW Standard Deviation 46.6 fL (35.1-46.3); Red Blood Cell Count 3.64 M/mm3 (3.80-5.20); White Blood Cell Count 7.24 K/mm3 (4.00-11.30)
[2019-02-15 07:47] LABS: Alanine Aminotransfer (ALT/SGP 16 U/L (12-78); Albumin, Blood 3.1 g/dL (3.4-5.0); Albumin/Globulin Ratio 0.9 (0.8-1.8); Alk Phos 118 U/L (50-136); Anion Gap 5 mmol/L (6-16); Aspartate Aminotrans (AST/SGOT 13 U/L (12-37); Bilirubin, Total 0.4 mg/dL (0.1-1.0); Blood Urea Nitrogen 15 mg/dL (8-24); Bun/Creatinine Ratio 20.2 (12.0-20.0); CO2, Blood 30 mmol/L (21-32); Chloride, Blood 107 mmol/L (98-108); Creatinine, Blood 0.74 mg/dL (0.40-1.00); Globulin, Blood 3.6 g/dL (2.2-4.0); Glomerular Filtration Rate >60 (60-); Glucose, Blood 123 mg/dL (70-99); Potassium, Blood 3.9 mmol/L (3.5-5.5); Sodium, Blood 142 mmol/L (136-145); Total Protein, Blood 6.7 g/dL (6.4-8.2)
--- NOTE | 2019-02-15 07:54 | NUR ---
INITIAL ASSESSMENT: PT IS RESTING COMFORTABLY IN BED. PT IS ALERT AND OX3. LEFT EYE DOESN'T OPEN FAR THE RIGHT, PT STATES THIS IS A CHRONIC ISSUE. PT DENIES PAIN AT THIS TIME. HRR. SR WITH 1ST DEGREE HB IN THE 70S PER TELEMETRY. LS CTA. BIOX WNL ON 1L VIA NC. BT+. PPP. NO EDEMA PRESENT AT THIS TIME. RESTING PORTION STRESS TEST SCHEDULED FOR TODAY, [employer] STATES PT MAY EAT IF SHE CAN GET HER BREAKFAST FINISHED BY 0830, PLAN FOR THE TEST BEING DONE AT 1230. VSS. PT DENIES OTHER NEEDS AT THIS TIME, CALL LIGHT IN REACH. WILL CONTINUE TO MONITOR.
--- NOTE | 2019-02-15 08:29 | NUR ---
Medications given; At this time, the pt is now NPO for stress test today. The pt was informed of this, and verbalized understanding.
--- NOTE | 2019-02-15 12:49 | NUR ---
PT IS STILL RESTING COMFORTABLY IN BED. CAREGIVER WAS AT BEDSIDE, INFORMED OF PLAN FOR THE DAY. [employer] CALLED TO MALIK TEST TIME, TIME HAS BEEN CHANGED TO 2:15 PM. LUNCH IS BEING HELD. PT DENIES OTHER NEEDS AT THIS TIME. CALL LIGHT IN REACH, WILL CONTINUE TO MONITOR.
--- NOTE | 2019-02-15 14:47 | NUR ---
Per admitm trigger, I met with Becky to offer prayer and encouragement. She admits she is nervous about her upcoming stress test. She responded well to prayer and assurance of God's love and attention. Advised I would remain available.
--- NOTE | 2019-02-15 16:28 | NUR ---
VSS. PT IS RESTING COMFORTABLE IN BED. PT JUST GOT BACK FROM HER STRESS TEST. PT DENIES NEEDS AT THIS TIME, CALL LIGHT IN REACH. WILL CONTINUE TO MONITOR.
--- NOTE | 2019-02-15 18:27 | NUR ---
PATIENT HAS DONE WELL TODAY. NO CHEST PAIN REPORTED. PT WAS ABLE TO COMPLETE RESTING PORTION OF STRESS TEST TODAY, STRESS PORTION WILL BE TOMORROW AM. PLAN FOR NPO AFTER MIDNIGHT. NO ACUTE CHANGES THIS SHIFT. WILL REPORT TO ONCOMING RN.
--- NOTE | 2019-02-15 19:43 | NUR ---
REPORT GIVEN TO RAMU FU RN. PT WILL BE TRANSFERED TO ROOM 357.
--- NOTE | 2019-02-16 06:40 | NUR ---
SHIFT SUMMARY: MIKE TRANSFERRED TO THE FLOOR AROUND 2019 VIA GURNEY, TRANSFERRED SELF TO THE BED. SHE IS HERE AWAITING A STRESS TEST, SECOND PART, IF ALL GOES WELL SHE WILL BE DISCHARGED HOME TODAY. SHE HAS DENIED CHEST PAIN, SOB, LIGHTHEADNESS OR ANY OTHER ACUTE CHANGES THIS SHIFT. SHE SLEPT WELL THROUGHOUT THE NIGHT, HAS BEEN NPO SINCE MIDNIGHT. MED GIVEN PER EMAR. WILL REPORT TO DAY SHIFT.
--- NOTE | 2019-02-16 16:43 | NUR ---
D/C INSTRUCTIONS PROVIDED AND EXPLAINED. IV AND TELE REMOVED. PT D/C VIA WHEELCHAIR WITH CAREGIVER AND DYER AND WASHER.
== END 2019-02-16 16:34 | disposition home or self-care (01) ==
LOC: ER 08:22 → PCU 08:23 → ER 08:23 → PCU 08:24 → MEDS 14:45 → PCU 14:45 → MEDS 02-15 19:52
PROVIDERS: Emergency Medicine; ADMIT Family Medicine
DX: R07.89 Other chest pain (principal); R10.13 Epigastric pain; R77.8 Other specified abnormalities of plasma proteins; I10 Essential (primary) hypertension; E11.9 Type 2 diabetes mellitus without complications; I25.10 Atherosclerotic heart disease of native coronary artery without angina pectoris; I48.91 Unspecified atrial fibrillation; J44.9 Chronic obstructive pulmonary disease, unspecified; E03.9 Hypothyroidism, unspecified; F32.9 Major depressive disorder, single episode, unspecified; G47.33 Obstructive sleep apnea (adult) (pediatric); Z99.89 Dependence on other enabling machines and devices; Z99.81 Dependence on supplemental oxygen; Z79.4 Long term (current) use of insulin; Z79.899 Other long term (current) drug therapy; Z88.5 Allergy status to narcotic agent
CPT/HCPCS: 36415; 71045; 78452; 80053; 82550; 82553; 82947; 84484; 85025; 93005; 93010; 93017; 94640; 94760; 99285-25; A9500; G0378; J0706; J1815; J2785

== ENCOUNTER → 2019-07-20 | Outpatient (CLI) | payer OTHER ==
[~2019-07-20] MED LIST changes: +ACET325 PO; +Alphagan P5 ML BOTHEYES; +Aspir 8181 MG PO; +MIRALAX119 GM PO; +OMEPRAZOLE20 MG PO
== END | disposition home or self-care (01) ==
LOC: LAB SHORT 17:53 → LAB EV 17:53
DX: N39.0 Urinary tract infection, site not specified (principal)
CPT/HCPCS: 87077; 87086; 87186

== ENCOUNTER 2020-07-03 14:07 | Emergency (ER) | payer OTHER ==
[~2020-07-03] VITALS: Ht 157.5 cm; Wt 74.8 kg
[2020-07-03 15:55] LABS: BASOPHILS ABSOLUTE AUTO 0.05 K/mm3 (0.00-0.23); BASOPHILS PERCENT AUTO 1 % (0-2); EOSINOPHILS ABSOLUTE AUTO 0.25 K/mm3 (0.00-0.68); EOSINOPHILS PERCENT AUTO 3 % (0-6); Hemoglobin 10.9 g/dL (11.5-16.0); IMMATURE GRAN ABSOLUTE AUTO 0.03 K/mm3 (0.00-0.10); IMMATURE GRAN PERCENT AUTO 0 % (0-1); LYMPHOCYTES ABSOLUTE AUTO 1.29 K/mm3 (0.84-5.20); LYMPHOCYTES PERCENT AUTO 17 % (21-46); MONOCYTES ABSOLUTE AUTO 0.58 K/mm3 (0.16-1.47); MONOCYTES PERCENT AUTO 8 % (4-13); Mean Corpuscular HGB 28.1 pg (26.0-34.0); Mean Corpuscular HGB Conc 30.3 g/dL (31.5-36.5); Mean Corpuscular Volume 93 fL (80-100); Mean Platelet Volume 10.3 fL (9.1-12.4); NEUTROPHILS ABSOLUTE AUTO 5.38 K/mm3 (1.96-9.15); NEUTROPHILS PERCENT AUTO 71 % (41-73); Platelet Count 279 K/mm3 (150-400); RDW Coefficient Variation 14.1 % (11.7-14.2); RDW Standard Deviation 47.9 fL (35.1-46.3); Red Blood Cell Count 3.88 M/mm3 (3.80-5.20); White Blood Cell Count 7.58 K/mm3 (4.00-11.30)
[2020-07-03 16:18] LABS: Alanine Aminotransfer (ALT/SGP 14 U/L (12-78); Albumin, Blood 3.2 g/dL (3.4-5.0); Albumin/Globulin Ratio 0.8 (0.8-1.8); Alk Phos 122 U/L (50-136); Anion Gap 3 mmol/L (6-16); Aspartate Aminotrans (AST/SGOT 13 U/L (12-37); Bilirubin, Total 0.3 mg/dL (0.1-1.0); Blood Urea Nitrogen 20 mg/dL (8-24); CO2, Blood 32 mmol/L (21-32); Calcium, Blood 9.3 mg/dL (8.5-10.1); Chloride, Blood 105 mmol/L (98-108); Globulin, Blood 3.9 g/dL (2.2-4.0); Glomerular Filtration Rate >60 (60-); Glucose, Blood 137 mg/dL (70-99); Sodium, Blood 140 mmol/L (136-145); Total Protein, Blood 7.1 g/dL (6.4-8.2); Troponin I 0.031 ng/mL (0.000-0.040)
== END 2020-07-03 19:35 | disposition home or self-care (01) ==
LOC: ER 14:07
PROVIDERS: Physician Assistant
DX: I20.9 Angina pectoris, unspecified (principal); J44.9 Chronic obstructive pulmonary disease, unspecified; I25.2 Old myocardial infarction; E11.9 Type 2 diabetes mellitus without complications; Z79.01 Long term (current) use of anticoagulants; Z79.899 Other long term (current) drug therapy; Z79.4 Long term (current) use of insulin; Z88.5 Allergy status to narcotic agent; Z88.8 Allergy status to other drugs, medicaments and biological substances; Z86.73 Personal history of transient ischemic attack (TIA), and cerebral infarction without residual deficits; Z99.81 Dependence on supplemental oxygen; Z95.5 Presence of coronary angioplasty implant and graft
CPT/HCPCS: 71045; 80053; 83880; 84484; 85025; 93005; 93010; 99285-25

== ENCOUNTER 2021-03-16 15:26 | Emergency (ER) | payer OTHER ==
[~2021-03-16] VITALS: Ht 165.1 cm; Wt 83.9 kg
== END 2021-03-16 18:10 | disposition home or self-care (01) ==
LOC: ER 15:26
DX: S39.012A Strain of muscle, fascia and tendon of lower back, initial encounter (principal); S50.02XA Contusion of left elbow, initial encounter; J44.9 Chronic obstructive pulmonary disease, unspecified; E03.9 Hypothyroidism, unspecified; E10.40 Type 1 diabetes mellitus with diabetic neuropathy, unspecified; Z79.4 Long term (current) use of insulin; Z79.899 Other long term (current) drug therapy; Z88.8 Allergy status to other drugs, medicaments and biological substances; Z88.5 Allergy status to narcotic agent; W01.0XXA Fall on same level from slipping, tripping and stumbling without subsequent striking against object, initial encounter
CPT/HCPCS: 73110; 73502; 99283-25

== ENCOUNTER 2021-09-10 10:43 | Emergency (ER) | payer OTHER ==
[~2021-09-10] VITALS: Ht 165.1 cm; Wt 77.6 kg
[2021-09-10 11:44] LABS: BASOPHILS ABSOLUTE AUTO 0.06 K/mm3 (0.00-0.23); BASOPHILS PERCENT AUTO 1 % (0-2); EOSINOPHILS PERCENT AUTO 3 % (0-6); Hematocrit 30.9 % (33.0-51.0); Hemoglobin 9.7 g/dL (11.5-16.0); IMMATURE GRAN ABSOLUTE AUTO 0.07 K/mm3 (0.00-0.10); IMMATURE GRAN PERCENT AUTO 1 % (0-1); LYMPHOCYTES ABSOLUTE AUTO 1.06 K/mm3 (0.84-5.20); LYMPHOCYTES PERCENT AUTO 11 % (21-46); MONOCYTES ABSOLUTE AUTO 0.92 K/mm3 (0.16-1.47); MONOCYTES PERCENT AUTO 10 % (4-13); Mean Corpuscular HGB 28.1 pg (26.0-34.0); Mean Corpuscular HGB Conc 31.4 g/dL (31.5-36.5); Mean Corpuscular Volume 90 fL (80-100); Mean Platelet Volume 9.7 fL (9.1-12.4); NEUTROPHILS PERCENT AUTO 75 % (41-73); Platelet Count 311 K/mm3 (150-400); RDW Coefficient Variation 14.3 % (11.7-14.2); RDW Standard Deviation 46.3 fL (35.1-46.3); Red Blood Cell Count 3.45 M/mm3 (3.80-5.20); White Blood Cell Count 9.51 K/mm3 (4.00-11.30)
[2021-09-10 12:00] LABS: International Normalized Ratio 1.11; Prothrombin Time Results 11.6 Sec (9.7-11.5)
[2021-09-10 12:03] LABS: Alanine Aminotransfer (ALT/SGP 13 U/L (12-78); Albumin, Blood 2.9 g/dL (3.4-5.0); Albumin/Globulin Ratio 0.7 (0.8-1.8); Alk Phos 117 U/L (50-136); Anion Gap 6 mmol/L (6-16); Aspartate Aminotrans (AST/SGOT 12 U/L (12-37); Bilirubin, Total 0.2 mg/dL (0.1-1.0); Blood Urea Nitrogen 19 mg/dL (8-24); Bun/Creatinine Ratio 24.2 (12.0-20.0); CO2, Blood 29 mmol/L (21-32); Chloride, Blood 102 mmol/L (98-108); Creatinine, Blood 0.79 mg/dL (0.40-1.00); Globulin, Blood 4.2 g/dL (2.2-4.0); Glomerular Filtration Rate >60 (60-); Glucose, Blood 154 mg/dL (70-99); Potassium, Blood 4.3 mmol/L (3.5-5.5); Sodium, Blood 137 mmol/L (136-145); Total Protein, Blood 7.1 g/dL (6.4-8.2)
[2021-09-10] MEDS ORDERED: AMOCLA875 PO ×2 (14:27→14:45)
== END 2021-09-10 14:42 | disposition home or self-care (01) ==
LOC: ER 10:43
PROVIDERS: Student in an Organized Health Care Education/Training Program
DX: K57.32 Diverticulitis of large intestine without perforation or abscess without bleeding (principal); K59.00 Constipation, unspecified; K64.8 Other hemorrhoids; K64.4 Residual hemorrhoidal skin tags; E03.9 Hypothyroidism, unspecified; I10 Essential (primary) hypertension; J44.9 Chronic obstructive pulmonary disease, unspecified; I25.2 Old myocardial infarction; E11.40 Type 2 diabetes mellitus with diabetic neuropathy, unspecified; Z79.899 Other long term (current) drug therapy; Z88.5 Allergy status to narcotic agent
CPT/HCPCS: 36415; 74177; 80053; 85025; 85610; 85730; 86850; 86900; 86901; 99284-25; A9270; Q9967

== ENCOUNTER 2021-09-14 11:20 | Emergency (ER) | payer OTHER ==
[~2021-09-14] VITALS: Ht 165.1 cm; Wt 78.0 kg
[~2021-09-14 11:20] MED LIST changes: +AMOCLA875 PO
[2021-09-14 11:51] LABS: BASOPHILS ABSOLUTE AUTO 0.04 K/mm3 (0.00-0.23); BASOPHILS PERCENT AUTO 1 % (0-2); EOSINOPHILS ABSOLUTE AUTO 0.29 K/mm3 (0.00-0.68); EOSINOPHILS PERCENT AUTO 4 % (0-6); Hematocrit 29.6 % (33.0-51.0); Hemoglobin 9.1 g/dL (11.5-16.0); IMMATURE GRAN ABSOLUTE AUTO 0.04 K/mm3 (0.00-0.10); IMMATURE GRAN PERCENT AUTO 1 % (0-1); LYMPHOCYTES ABSOLUTE AUTO 0.89 K/mm3 (0.84-5.20); LYMPHOCYTES PERCENT AUTO 12 % (21-46); MONOCYTES ABSOLUTE AUTO 0.76 K/mm3 (0.16-1.47); MONOCYTES PERCENT AUTO 10 % (4-13); Mean Corpuscular HGB 27.8 pg (26.0-34.0); Mean Corpuscular HGB Conc 30.7 g/dL (31.5-36.5); Mean Corpuscular Volume 91 fL (80-100); Mean Platelet Volume 9.8 fL (9.1-12.4); NEUTROPHILS ABSOLUTE AUTO 5.38 K/mm3 (1.96-9.15); NEUTROPHILS PERCENT AUTO 73 % (41-73); Platelet Count 351 K/mm3 (150-400); RDW Coefficient Variation 14.5 % (11.7-14.2); RDW Standard Deviation 47.4 fL (35.1-46.3); Red Blood Cell Count 3.27 M/mm3 (3.80-5.20)
[2021-09-14 12:09] LABS: Alanine Aminotransfer (ALT/SGP 12 U/L (12-78); Albumin, Blood 2.8 g/dL (3.4-5.0); Albumin/Globulin Ratio 0.8 (0.8-1.8); Alk Phos 113 U/L (50-136); Anion Gap 4 mmol/L (6-16); Aspartate Aminotrans (AST/SGOT 11 U/L (12-37); Bilirubin, Total 0.3 mg/dL (0.1-1.0); Blood Urea Nitrogen 13 mg/dL (8-24); Bun/Creatinine Ratio 15.1 (12.0-20.0); CO2, Blood 29 mmol/L (21-32); Calcium, Blood 8.7 mg/dL (8.5-10.1); Chloride, Blood 107 mmol/L (98-108); Creatinine, Blood 0.86 mg/dL (0.40-1.00); Globulin, Blood 3.5 g/dL (2.2-4.0); Glomerular Filtration Rate >60 (60-); Glucose, Blood 119 mg/dL (70-99); Potassium, Blood 4.4 mmol/L (3.5-5.5); Sodium, Blood 140 mmol/L (136-145); Total Protein, Blood 6.3 g/dL (6.4-8.2); Troponin I <0.015 ng/mL (0.000-0.040)
== END 2021-09-14 15:02 | disposition home or self-care (01) ==
LOC: ER 11:20
PROVIDERS: Emergency Medicine
DX: T80.89XA Other complications following infusion, transfusion and therapeutic injection, initial encounter (principal); R07.9 Chest pain, unspecified; D64.9 Anemia, unspecified; E03.9 Hypothyroidism, unspecified; E11.9 Type 2 diabetes mellitus without complications; J44.9 Chronic obstructive pulmonary disease, unspecified; I25.2 Old myocardial infarction
CPT/HCPCS: 36415; 71045; 80053; 84484; 85025; 93005; 93010; 99285-25

== ENCOUNTER → 2021-10-06 | Outpatient (CLI) | payer OTHER ==
[2021-10-06 15:00] LABS: BASOPHILS ABSOLUTE AUTO 0.07 K/mm3 (0.00-0.23); BASOPHILS PERCENT AUTO 1 % (0-2); EOSINOPHILS ABSOLUTE AUTO 0.19 K/mm3 (0.00-0.68); EOSINOPHILS PERCENT AUTO 2 % (0-6); Hematocrit 28.1 % (33.0-51.0); Hemoglobin 8.4 g/dL (11.5-16.0); IMMATURE GRAN ABSOLUTE AUTO 0.04 K/mm3 (0.00-0.10); IMMATURE GRAN PERCENT AUTO 0 % (0-1); LYMPHOCYTES PERCENT AUTO 8 % (21-46); MONOCYTES ABSOLUTE AUTO 0.74 K/mm3 (0.16-1.47); MONOCYTES PERCENT AUTO 8 % (4-13); Mean Corpuscular HGB 26.9 pg (26.0-34.0); Mean Corpuscular HGB Conc 29.9 g/dL (31.5-36.5); Mean Corpuscular Volume 90 fL (80-100); Mean Platelet Volume 10.2 fL (9.1-12.4); NEUTROPHILS ABSOLUTE AUTO 7.23 K/mm3 (1.96-9.15); NEUTROPHILS PERCENT AUTO 81 % (41-73); NRBC ABSOLUTE 0.02 K/mm3 (0.00-0.02); NRBC Auto 0.2 /100 WBC (0.0-0.2); Platelet Count 352 K/mm3 (150-400); RDW Coefficient Variation 15.9 % (11.7-14.2); RDW Standard Deviation 51.8 fL (35.1-46.3); Red Blood Cell Count 3.12 M/mm3 (3.80-5.20); White Blood Cell Count 8.97 K/mm3 (4.00-11.30)
[2021-10-06 16:01] LABS: Anion Gap 10 mmol/L (6-16); Blood Urea Nitrogen 19 mg/dL (8-24); Bun/Creatinine Ratio 23.2 (12.0-20.0); CO2, Blood 27 mmol/L (21-32); Calcium, Blood 8.7 mg/dL (8.5-10.1); Chloride, Blood 103 mmol/L (98-108); Creatinine, Blood 0.82 mg/dL (0.40-1.00); Glomerular Filtration Rate >60 (60-); Glucose, Blood 176 mg/dL (70-99); Potassium, Blood 4.7 mmol/L (3.5-5.5); Sodium, Blood 140 mmol/L (136-145)
== END ==
LOC: LAB SHORT 14:57
PROVIDERS: Family Medicine
DX: R06.02 Shortness of breath (principal)
CPT/HCPCS: 80048; 83880; 85025

== ENCOUNTER → 2022-06-01 | Outpatient (CLI) | payer OTHER | END | disposition home or self-care (01) | LOC: LAB SHORT 15:45 → LAB 15:45 | DX: R30.0 Dysuria (principal) | CPT/HCPCS: 87086 ==

== ENCOUNTER 2022-06-17 09:36 | Emergency (ER) | payer OTHER ==
[~2022-06-17] VITALS: Ht 165.1 cm; Wt 84.4 kg
[2022-06-17 10:45] LABS: BASOPHILS ABSOLUTE AUTO 0.05 K/mm3 (0.00-0.23); BASOPHILS PERCENT AUTO 0 % (0-2); EOSINOPHILS ABSOLUTE AUTO 0.14 K/mm3 (0.00-0.68); EOSINOPHILS PERCENT AUTO 1 % (0-6); Hematocrit 31.7 % (33.0-51.0); Hemoglobin 9.5 g/dL (11.5-16.0); IMMATURE GRAN ABSOLUTE AUTO 0.03 K/mm3 (0.00-0.10); IMMATURE GRAN PERCENT AUTO 0 % (0-1); LYMPHOCYTES PERCENT AUTO 7 % (21-46); MONOCYTES ABSOLUTE AUTO 0.95 K/mm3 (0.16-1.47); MONOCYTES PERCENT AUTO 8 % (4-13); Mean Corpuscular HGB 24.4 pg (26.0-34.0); Mean Corpuscular Volume 81 fL (80-100); Mean Platelet Volume 9.8 fL (9.1-12.4); NEUTROPHILS ABSOLUTE AUTO 9.28 K/mm3 (1.96-9.15); NEUTROPHILS PERCENT AUTO 83 % (41-73); Platelet Count 306 K/mm3 (150-400); RDW Coefficient Variation 17.5 % (11.7-14.2); RDW Standard Deviation 51.8 fL (35.1-46.3); White Blood Cell Count 11.25 K/mm3 (4.00-11.30)
[2022-06-17 11:06] LABS: Albumin/Globulin Ratio 0.7 (0.8-1.8); Bilirubin, Total 0.5 mg/dL (0.1-1.0); Bun/Creatinine Ratio 47.6 (12.0-20.0); Calcium, Blood 9.2 mg/dL (8.5-10.1); Creatinine, Blood 0.9 mg/dL (0.40-1.00); Globulin, Blood 4.1 g/dL (2.2-4.0); Potassium, Blood 4.1 mmol/L (3.5-5.5); Total Protein, Blood 7.1 g/dL (6.4-8.2)
== END 2022-06-17 14:23 | disposition left against medical advice (07) ==
LOC: ER 09:36
PROVIDERS: Physician Assistant
DX: K62.5 Hemorrhage of anus and rectum (principal); Z53.21 Procedure and treatment not carried out due to patient leaving prior to being seen by health care provider
CPT/HCPCS: 36415; 80053; 83690; 85025; 86850; 86900; 86901

== ENCOUNTER 2022-10-09 11:55 | Inpatient (IN) | payer OTHER ==
[~2022-10-09] VITALS: Ht 152.4 cm; Wt 82.2 kg
[2022-10-09 12:29] LABS: BASOPHILS ABSOLUTE AUTO 0.04 K/mm3 (0.00-0.23); BASOPHILS PERCENT AUTO 0 % (0-2); EOSINOPHILS PERCENT AUTO 1 % (0-6); Hematocrit 29.6 % (33.0-51.0); Hemoglobin 9.7 g/dL (11.5-16.0); IMMATURE GRAN ABSOLUTE AUTO 0.09 K/mm3 (0.00-0.10); IMMATURE GRAN PERCENT AUTO 1 % (0-1); LYMPHOCYTES ABSOLUTE AUTO 0.43 K/mm3 (0.84-5.20); LYMPHOCYTES PERCENT AUTO 3 % (21-46); MONOCYTES PERCENT AUTO 8 % (4-13); Mean Corpuscular HGB 28.8 pg (26.0-34.0); Mean Corpuscular HGB Conc 32.8 g/dL (31.5-36.5); Mean Corpuscular Volume 88 fL (80-100); Mean Platelet Volume 10.3 fL (9.1-12.4); NEUTROPHILS ABSOLUTE AUTO 12.13 K/mm3 (1.96-9.15); NEUTROPHILS PERCENT AUTO 87 % (41-73); Platelet Count 258 K/mm3 (150-400); RDW Coefficient Variation 15.8 % (11.7-14.2); RDW Standard Deviation 49.9 fL (35.1-46.3); Red Blood Cell Count 3.37 M/mm3 (3.80-5.20); White Blood Cell Count 13.89 K/mm3 (4.00-11.30)
[2022-10-09 13:06] LABS: Albumin, Blood 2.4 g/dL (3.4-5.0); Albumin/Globulin Ratio 0.5 (0.8-1.8); Bilirubin, Total 0.6 mg/dL (0.1-1.0); Bun/Creatinine Ratio 38.8 (12.0-20.0); Calcium, Blood 9.3 mg/dL (8.5-10.1); Creatinine, Blood 1.29 mg/dL (0.40-1.00); Globulin, Blood 4.4 g/dL (2.2-4.0); Potassium, Blood 4.3 mmol/L (3.5-5.5); Total Protein, Blood 6.8 g/dL (6.4-8.2)
[2022-10-09 13:09] LABS: Influenza A, PCR NEGATIVE (NEGATIVE); Influenza B, PCR NEGATIVE (NEGATIVE); Resp Syncytial Virus, PCR NEGATIVE (NEGATIVE); SARS-Cov-2 (COVID-19) PCR, MMC NEGATIVE (NEGATIVE)
[2022-10-09 13:11] LABS: Magnesium, Blood 1.7 mg/dL (1.6-2.4)
[2022-10-09 13:13] LABS: Thyroid Stimulating Hormone 0.779 uIU/mL (0.360-4.800)
[2022-10-09] MEDS ORDERED: ESCI10 PO (15:26)
[2022-10-09] MEDS ORDERED: INSULANPEN SC (17:07)
[2022-10-09] MEDS ORDERED: ASPI81CH PO ×2 (17:09→17:10)
--- NOTE | 2022-10-09 19:55 | NUR ---
SHIFT SUMMARY 1700 RECEIVED PT TO RM 328 VIA RUFINO FROM ER. PER REPORT FROM DIONE GREER, PT TO ER VIA EMS FOR WEAKNESS AND SOB. PT'S BIOX ON RA AT 70%, PER REPORT. PT PLACED ON HIGH FLOW O2 PRIOR TO COMING TO FLOOR. PT USES 3L O2 AT BASELINE. PT ADMITTED FOR PNM. PT ABLE TO TX SELF TO BED, RT TO RM WITH PT. PER LEAD ESTHETICIAN, PT LIVES IN HER OWN HOME AND HE LIVES WITH HER TO ASSIST, ALONG WITH H/H. HX OF COPD, DENNIS, DM2, ID, AND CVA. PT IS SLIGHTLY [place], BUT PLEASANT AND CO-OP. BED ALARM ON FOR SAFETY. CALL LT IN REACH.
[2022-10-10 06:15] LABS: BASOPHILS ABSOLUTE AUTO 0.03 K/mm3 (0.00-0.23); BASOPHILS PERCENT AUTO 0 % (0-2); EOSINOPHILS ABSOLUTE AUTO 0.06 K/mm3 (0.00-0.68); EOSINOPHILS PERCENT AUTO 0 % (0-6); Hematocrit 30.3 % (33.0-51.0); Hemoglobin 9.9 g/dL (11.5-16.0); IMMATURE GRAN ABSOLUTE AUTO 0.08 K/mm3 (0.00-0.10); IMMATURE GRAN PERCENT AUTO 1 % (0-1); LYMPHOCYTES ABSOLUTE AUTO 0.43 K/mm3 (0.84-5.20); LYMPHOCYTES PERCENT AUTO 3 % (21-46); MONOCYTES ABSOLUTE AUTO 1.04 K/mm3 (0.16-1.47); MONOCYTES PERCENT AUTO 8 % (4-13); Mean Corpuscular HGB 28.6 pg (26.0-34.0); Mean Corpuscular HGB Conc 32.7 g/dL (31.5-36.5); Mean Corpuscular Volume 88 fL (80-100); Mean Platelet Volume 10.2 fL (9.1-12.4); NEUTROPHILS PERCENT AUTO 88 % (41-73); NRBC ABSOLUTE 0.02 K/mm3 (0.00-0.02); NRBC Auto 0.1 /100 WBC (0.0-0.2); Platelet Count 265 K/mm3 (150-400); RDW Coefficient Variation 15.7 % (11.7-14.2); RDW Standard Deviation 49.7 fL (35.1-46.3); Red Blood Cell Count 3.46 M/mm3 (3.80-5.20); White Blood Cell Count 13.34 K/mm3 (4.00-11.30)
[2022-10-10 06:34] LABS: Albumin, Blood 2.3 g/dL (3.4-5.0); Anion Gap 7 mmol/L (6-16); Blood Urea Nitrogen 37 mg/dL (8-24); Bun/Creatinine Ratio 32.5 (12.0-20.0); CO2, Blood 30 mmol/L (21-32); Chloride, Blood 97 mmol/L (98-108); Creatinine, Blood 1.14 mg/dL (0.40-1.00); Glomerular Filtration Rate 47 (60-); Glucose, Blood 186 mg/dL (70-99); Magnesium, Blood 1.4 mg/dL (1.6-2.4); Phosphorus, Blood 3.4 mg/dL (2.5-4.9); Potassium, Blood 3.4 mmol/L (3.5-5.5); Sodium, Blood 134 mmol/L (136-145)
--- NOTE | 2022-10-10 07:46 | NUR ---
RN NOTE MS GARCÍA IS ON HIGH FLOW AIRVO, CONTINUOUS PULSE OX IN THE 90S. SOFT WRIST RESTRAINTS IN PLACE BILATERALLY, REMOVED TO ASSESS PT BUT SHE PLEASANTLY REACHES FOR HER OXYGEN AND PULLS AT IT. MESSAGE LEFT FOR PAMELA, HOME CAREGIVER, AWAITING CALL BACK TO ASK IF HE CAN SIT WITH HER. PT IS ORIENTATED TO SELF AND [facility] ONLY. BED LOW, CALL LIGHT IN REACH.
--- NOTE | 2022-10-10 08:16 | NUR ---
RN NOTE MS GARCÍA IS AGGITATED, PULLING CONSTANTLY AT RESTRAINTS AND OXYGEN TUBING. S/B RT BRODY AND DR KITCHEN - HR 130S, SAT 90% ON HIGH FLOW, PT REFUSING VITAL SIGNS, REFUSING AM MEDS, REFUSED ACCUCHECK.
--- NOTE | 2022-10-10 09:14 | NUR ---
RN NOTE REPORT TO FLAQUITO GREGORIO RN IN ICU. PT TRANSFERING ON PCU STATUS. SITTER TO BEDSIDE SO RESTRAINTS REMOVED UNDER CLOSE OBSERVATION. PT GOT ZYPREXA IM BUT REUSING ORAL MEDS EVEN CRUSHED IN PUDDING. AWAITING RT TO TRANSFER PT TO ICU.
--- NOTE | 2022-10-10 09:59 | NUR ---
RN NOTE. TRANSFERED TO ICU. DAUGHTER NOTIFIED OF ROOM CHANGE.
[2022-10-10 10:46] LABS: Source, Urine Foley catheter
[2022-10-10 11:00] LABS: Appearance, Urine Clear (Clear); Bilirubin, Urine Neg (Neg); Blood, Urine 1+ (Neg); Color, Urine Yellow (P-Yellow); Glucose Qualitative, Urine Neg (Neg); Ketones, Urine 1+ (Neg); Leukocyte Esterase, Urine Neg (Neg); Nitrite, Urine Neg (Neg); Protein, Urine 2+ (Neg); Specific Gravity, Urine 1.015 (1.003-1.022); Urobilinogen, Urine NORM (Normal)
[2022-10-10 11:30] LABS: Bacteria Not Seen /hpf; Red Blood Cells, Urine 0-2 /hpf (0-2); Squamous Epithelial Cells Not Seen /hpf (Few); White Blood Cells, Urine Not Seen /hpf (0-5)
--- NOTE | 2022-10-10 14:56 | NUR ---
PT RECEIVED ONE DOSE OF ATIVAN AND WAS ABLE TO GET SOME SLEEP. ON AIRVO. TRANSFERED TO PCU 9 VIA BED. CAREGIVER ACCOMPANIES PT. NO SIGN OF DISTRESS.
--- NOTE | 2022-10-10 18:31 | NUR ---
PT TRANSFERRED FROM ICU 15 TO PCU 9. REPORT RECEIVED FROM FLAQUITO GREER. PT WAS MUMBLES WHEN RESPONDING TO QUESTIONS, ON BUE SOFT WIRST RESTRAINTS PT KEEPS PULLING ON LINES AND TUBINGS AND AIRVO. PT WAS MEDICATED PRIOR TO TRANSFER WITH ATIVAN SO PT WAS RESTING UNTIL THE END OF SHIFT WITH CAREGIVER AT THE BEDSIDE, PT WILL ON AND OFF WAKE UP HAS EPISODES OF TRYING TO GET OUT OF BED THEN FALLS BACK TO SLEEP. PT WITH AGUILAR IN PLACE DRAINING VIA GRAVITY. DAUGHTER DEVON CALLED AND WAS GIVEN UPDATE REGARDING PTS STATUS. NO OTHER ISSUES REPORTED, VITALS HAS BEEN STABLE, PT REPOSITIONED FOR COMFORT. WILL REPORT TO ONCOMING SHIFT
[2022-10-11 04:19] LABS: BASOPHILS ABSOLUTE AUTO 0.04 K/mm3 (0.00-0.23); BASOPHILS PERCENT AUTO 0 % (0-2); EOSINOPHILS ABSOLUTE AUTO 0.04 K/mm3 (0.00-0.68); EOSINOPHILS PERCENT AUTO 0 % (0-6); Hematocrit 29.3 % (33.0-51.0); Hemoglobin 9.3 g/dL (11.5-16.0); IMMATURE GRAN ABSOLUTE AUTO 0.07 K/mm3 (0.00-0.10); IMMATURE GRAN PERCENT AUTO 1 % (0-1); LYMPHOCYTES ABSOLUTE AUTO 0.54 K/mm3 (0.84-5.20); LYMPHOCYTES PERCENT AUTO 4 % (21-46); MONOCYTES ABSOLUTE AUTO 1.06 K/mm3 (0.16-1.47); MONOCYTES PERCENT AUTO 8 % (4-13); Mean Corpuscular HGB 28.4 pg (26.0-34.0); Mean Corpuscular HGB Conc 31.7 g/dL (31.5-36.5); Mean Corpuscular Volume 89 fL (80-100); Mean Platelet Volume 10.2 fL (9.1-12.4); NEUTROPHILS ABSOLUTE AUTO 11.16 K/mm3 (1.96-9.15); NEUTROPHILS PERCENT AUTO 87 % (41-73); Platelet Count 257 K/mm3 (150-400); RDW Coefficient Variation 15.7 % (11.7-14.2); RDW Standard Deviation 50.6 fL (35.1-46.3); Red Blood Cell Count 3.28 M/mm3 (3.80-5.20); White Blood Cell Count 12.91 K/mm3 (4.00-11.30)
[2022-10-11 04:38] LABS: Albumin/Globulin Ratio 0.4 (0.8-1.8); Bilirubin, Total 0.7 mg/dL (0.1-1.0); Bun/Creatinine Ratio 26.2 (12.0-20.0); Calcium, Blood 9.1 mg/dL (8.5-10.1); Creatinine, Blood 1.03 mg/dL (0.40-1.00); Globulin, Blood 4.7 g/dL (2.2-4.0); Magnesium, Blood 1.4 mg/dL (1.6-2.4); Potassium, Blood 3.2 mmol/L (3.5-5.5); Total Protein, Blood 6.7 g/dL (6.4-8.2)
--- NOTE | 2022-10-11 07:25 | NUR ---
SHIFT SUMMARY PT AOX2-3 T/O SHIFT. PT IS TACHYPNEIC, OCCASIONAL DRY COUGH. SATS 88-95% ON AIRVO T/O SHIFT. DOWN INTO 70'S THIS AM FOLLOWING REPOSITIONING AND NONREBREATHER AT 15 L O2 NEEDED OVER TOP OF AIRVO AT 60 L AND 100% O2 TO RECOVER PT, PT SATS BACK UP TO MID TO LOW 90'S FOLLOWING THIS FOR 10 MINS. PT IS CURRENTLY ON THE AIRVO. PT SEEMED TO GET SOME REST THIS AM AFTER BEING RESTLESS AT START OF SHIFT, NO FURTHER DOSES OF ATIVAN WERE NEEDED THIS AM TO KEEP PT CALM AND FROM DECREASED O2 W/MOVEMENT. PT RESPONDING TO SOME QUESTIONS FROM THIS RN. PAMELA CAREGIVER STATES HE WILL BE BACK THIS AM. PT FAILED BEDSIDE SWALLOW EVAL LAST NIGHT AND WAS MADE NPO.
--- NOTE | 2022-10-11 15:31 | NUR ---
TRANSFER NOTE: PT TRANSFERRED TO ICU 12 REPORT GIVEN TO FLAQUITO GREER. PAMELA CAREGIVER AT THE BEDSIDE DURING TRANSFER, DAUGHTER SHU CALLED AND MADE AWARE OF THE TRANSFER TOO. PT FOR BRONCHOSCOPY PROCEDURE PER DR SCOTT. PT HAS BEEN ON RESTRAINTS MOST OF THE SHIFT WAS OFF FOR CHEST CT 1400 UNTIL PT WAS TRANSFER TO ICU POWERGLIDE WAS PLACED AT LEFT UPPER ARM WHEN PT GOT BACK FROM CT. PT ALERT AND ORIENTED TO SELF AND FAMILY HAS WEAK VOICE SOMTIMES MUMBLES PT THOUGHT SHE WAS HOME WHEN ASKED WHERE SHES AT. VITALS HRR AFLUTTER 90-100'S, ON AIRVO 70L 90% FIO2 DESATS TO 70% WHEN PT WAS MOVING AROUND HAS TO HAVE NONREBREATHER ON TOP OF AIRVO TO RECOVER SO CHEST XRAY WAS ORDERED, DR KITCHEN DID A BEDSIDE LUNG SCAN CONSULTED DR SCOTT. PT WAS RUNNING A TEMP 101F THIS MORNING TYLENOL SUPPOSITORY ADMINISTERED BROUGHT IT DOWN TO 100.4, SBP 120-140'S. PT KEPT NPO, CBG Q6 SLIDING SCALE PER COVERAGE. ALL BELONGINGS SENT WITH THE PT, PT TRANSFERRED VIA HOSPITAL BED
--- NOTE | 2022-10-11 17:42 | NUR ---
SUMMARY PT TRANSFERED TO ICU FROM PCU FOR BRONCH WITH DR. SCOTT. INCREASING O2 DEMANDS PRIOR TO PROCEDURE. DR. SCOTT WAS ABLE TO REMOVE CASTS FROM VOCAL CORDS AND SUCTION MUCOUS FROM THE LUNGS. DURING THE PROCEDURE PT STARTED COUGHING AND DESATTING. DECISION WAS MADE TO INTUBATE. AFTER INTUBATION MORE MUCOUS WAS REMOVED FROM LUNGS. PT IS NOW ON PROPOFOL GTT FOR SEDATION. CAREGIVER AT BEDSIDE AND UPDATED. DR. SCOTT UPDATING FAMILY. PROCEDURE EVENTS FOLLOWS: 1610: PROPOFOL 10MG 1612: NEOSYNEPHERINE 100MCG 1615: PROPOFOL 20MG 1617: PROPOFOL 30MG 1618: BRONCH STARTED 1620: PROPOFOL 40MG 1624: PROPOFOL 40MG 1629: PROPOFOL 50MG 1632: VERSED 2MG 1636: ROCURONIUM 50MG 1637: INTUBATED WITH 7.5 ETT, 25CM AT THE LIP, POSITIVE COLOR CHANGE 1650: ETT RETRACTED TO 23CM AT TEETH. 1700: OGT PLACED WITH POSITIVE AUSCULATION.
--- NOTE | 2022-10-11 22:44 | NUR ---
ASSUMED CARE AT 1900 PATIENT IS INTUBATED AND SEDATED ON PROPOFOL. OPENS EYES TO VERBAL STIMULI, MOVES ALL EXTREMITIES. 02 SATS 94% ON VENT, RR 17. VENT SETTINGS AC VC 16/450/5/45%. LS COARSE IN PALCES, THIN PATEL SECRETIONS SUCTIONS WITH STREAKS OF BLOOD. OG TO LIS, TURNED OFF FOR PO MEDICATIONS. HR A.FIB 108, BP STABLE. AGUILAR PATENT AND DRAINING YELLOW URINE TO GRAVITY. PATIENT REPOSITIONED AND ORAL CARE DONE. CALL LIGHT IN REACH, SEE SHIFT ASSESSMENT FOR MORE INFORMATION.
[2022-10-12 03:43] LABS: BASOPHILS ABSOLUTE AUTO 0.06 K/mm3 (0.00-0.23); BASOPHILS PERCENT AUTO 0 % (0-2); EOSINOPHILS ABSOLUTE AUTO 0.04 K/mm3 (0.00-0.68); EOSINOPHILS PERCENT AUTO 0 % (0-6); Hematocrit 28.8 % (33.0-51.0); Hemoglobin 9.2 g/dL (11.5-16.0); IMMATURE GRAN ABSOLUTE AUTO 0.23 K/mm3 (0.00-0.10); IMMATURE GRAN PERCENT AUTO 2 % (0-1); LYMPHOCYTES ABSOLUTE AUTO 0.52 K/mm3 (0.84-5.20); LYMPHOCYTES PERCENT AUTO 3 % (21-46); MONOCYTES ABSOLUTE AUTO 0.89 K/mm3 (0.16-1.47); MONOCYTES PERCENT AUTO 6 % (4-13); Mean Corpuscular HGB 28.8 pg (26.0-34.0); Mean Corpuscular HGB Conc 31.9 g/dL (31.5-36.5); Mean Corpuscular Volume 90 fL (80-100); NEUTROPHILS PERCENT AUTO 89 % (41-73); NRBC ABSOLUTE 0.02 K/mm3 (0.00-0.02); NRBC Auto 0.1 /100 WBC (0.0-0.2); Platelet Count 262 K/mm3 (150-400); RDW Coefficient Variation 15.8 % (11.7-14.2); RDW Standard Deviation 51.6 fL (35.1-46.3); White Blood Cell Count 15.54 K/mm3 (4.00-11.30)
[2022-10-12 04:06] LABS: Albumin, Blood 1.8 g/dL (3.4-5.0); Anion Gap 12 mmol/L (6-16); Blood Urea Nitrogen 32 mg/dL (8-24); Bun/Creatinine Ratio 27.4 (12.0-20.0); CO2, Blood 26 mmol/L (21-32); Calcium, Blood 9.4 mg/dL (8.5-10.1); Chloride, Blood 104 mmol/L (98-108); Creatinine, Blood 1.17 mg/dL (0.40-1.00); Glomerular Filtration Rate 45 (60-); Glucose, Blood 241 mg/dL (70-99); Magnesium, Blood 1.7 mg/dL (1.6-2.4); Phosphorus, Blood 3.3 mg/dL (2.5-4.9); Potassium, Blood 3.4 mmol/L (3.5-5.5); Sodium, Blood 142 mmol/L (136-145)
--- NOTE | 2022-10-12 05:28 | NUR ---
SHIFT SUMMARY TITRATED PROPOFOL OFF THIS AM, PATIENT OPENING EYES AND FOLLOWING SIMPLE COMMANDS. NODS YES/NO AT TIMES. RT TO ROOM AND PATIENT NOW ON SPONT PS 12/5 FI02 45%, RR 23. PATIENT TOLERATING WELL WILL CONTINUE ON SPONT LONG SHE TOLERATES IT. LS REMAIN COARSE WITH MODERATE TO LARGE AMOUNT OF SECRETIONS, THICK/PATEL/RED STREAKS. HR A.FIB 90, BP STABLE. OG TO LIS, SCANT AMOUNT OF OUTPUT. TEMP AGUILAR PATENT AND DRAINING YELLOW URINE WITH SEDIMENT. REPLACING POTASSIUM THIS AM. BED BATH DONE THIS SHIFT. PATIENT REPOSITIONED Q2 HOURS AND MEPILEX PLACED ON COCCYX FOR PROTECTION. CALL LIGHT IN REACH
--- NOTE | 2022-10-12 09:42 | NUR ---
ASSUMED CARE OF MIKE AT 0700, SHE IS ALERT AND ANSWERS WITH HEAD NODS AND SHAKES. SHE IS MOVING ALL EXTREMITIES WELL AND SHE IS COUGHING QUITE A BIT. ON PRESSURE SUPPORT OF 12, PEEP 5, SPONTANEOUS MODE. COPIOUS AMOUNT OF SECRETIONS RETURN ON ETT SUCTIONING. SHE IS ANXIOUS AND WANTS HER TUBE OUT. DAUGHTER, HAWA CALLED FROM [place] FOR UPDATE.
--- NOTE | 2022-10-12 10:21 | NUR ---
DR. SHAVER IN TO SEE PT, RESTARTED PROPOFOL. SHE IS VISIBLY ANXIOUS AND TRYING TO SIT UP IN BED AND GET AHOLD OF HER TUBE. SHE IS VERBALLY REASSURED OFTEN AND ENCOURAGED. HER CAREGIVER, PAMELA HAS ARRIVED, UPDATED ON SITUATION.
--- NOTE | 2022-10-12 16:59 | NUR ---
MIKE FINALLY BECAME CONFORTABLE WITH THE PROPOFOL, SHE THEN CAUSED THE VENT- ILATOR TO GO INTO "APNEA MODE". RESP.THERAPY WAS CALLED AND BY THE TIME SHE ARRIVED MIKE WAS AWAKE MORE AND COUGHING. SHE HAS CONTINUED TO ANSWER QUESTIONS WITH HEAD NOD AND SHAKES. TUBE FEEDING OF VITAL HIGH PROTEIN WAS INITIATED AT 25ML/HR. URINE OUTPUT CONTINUES WITH DAISHA, SEDIMENT RETURN. NO BM THIS SHIFT. TURNED AND REPOSITIONED Q2. PT VERY MOBILE WITH MOVING HER LEGS AND HIPS INDEPENDENTLY. RESTRAINTS REMAIN IN PLACE SHE REACHES FOR THE ETT SOON HER HANDS ARE FREED.
--- NOTE | 2022-10-12 19:01 | NUR ---
PT CONTINUES TO RESPOND BY HEAD NODS AND SHAKES CONTINUES ON THE VENTILATOR PRESSURE SUPPORT OF 12, PEEP 5, FIO2 45% COPIOUS AMOUNT OF PATEL THICK RETURN VIA ENDOTRACHEAL SUCTIONING, 7.5 TUBE 24 AT THE TEETH TUBE FEEDINGS INITIATED WITH VITAL HIGH PROTEIN AT 25ML/HR, TO GOAL OF 45ML. AGUILAR TO GRAVITY DRAINAGE WITH SEDIMENT, DAISHA COLORED RETURN NO BM THIS SHIFT. CONTINTUES TO MOVE ALL EXTREMITIES WELL AND SITS BOLT UPRIGHT WHEN COUGHING. TURNED AND REPOSITIONED Q2. SALINE LOCK RIGHT FOREARM, PG WITH PROPOFOL @ 15MCG/KG AND NS TKO.
--- NOTE | 2022-10-12 20:28 | NUR ---
ASSUMED CARE AT 1900 PATIENT IS INTUBATED AND SEDATED ON PROPOFOL, OPENS EYES AND MOVES ALL EXTREMITIES. FOLLOWS SIMPLE COMMANDS BUT CONTINUES TO ATTEMPT TO PULL OUT TUBES. 02 SATS 95% ON VENT SPONT PS 12/5 FI02 45%, RR 18, LS COARSE. HR A.FIB 100-120, BP STABLE. OG WITH TF INFUSING, WILL INCREASE PER ORDERS TO GOAL RATE. TEMP AGUILAR PATENT AND DRAINIG YELLOW URINE TO GRAVITY. PATIENT REPOSITIONED AND ORAL CARE DONE. CAREGIVER WENT HOME. UPDATED DAUGHTER OVER THE PHONE, STATES SHE WILL BE HERE TOMORROW.
--- NOTE | 2022-10-12 23:35 | NUR ---
TUBE FEED INCREASED TO GOAL RATE OF 40 MLS/HR WITH 30 MLS FLUSHES Q4H.
--- NOTE | 2022-10-13 06:06 | NUR ---
SHIFT [employer] PATIENT REMAINS INTUBATED AND SEDATED ON PROPOFOL. ALERT AND ABLE TO FOLLOW COMMANDS. 02 SATS 95% ON VENT SPONT. PC 12/ FI02 45%, RR 20s. HR A.FIB 102. BP STABLE. AGUILAR PATENT AND DRAINING TO GRAVITY 1600 THIS SHIFT. BED BATH DONE, AND REPOSITIONED Q2 HOURS, PATIENT ALSO ABLE TO MOVE HIPS. TF INFUSING THROUGH OG AT GOAL RATE
[2022-10-13 06:40] LABS: Bun/Creatinine Ratio 32.4 (12.0-20.0); Calcium, Blood 9.4 mg/dL (8.5-10.1); Creatinine, Blood 1.05 mg/dL (0.40-1.00); Magnesium, Blood 1.5 mg/dL (1.6-2.4); Phosphorus, Blood 2.5 mg/dL (2.5-4.9); Potassium, Blood 3.1 mmol/L (3.5-5.5)
--- NOTE | 2022-10-13 08:30 | NUR ---
ASSUMED CARE / DR SHAVER: REPORT RECEIVED FROM JEANA Lopez RN. ASSUMED CARE OF THIS PT AT APPROX 0700. ON ASSESSMENT, THE PT IS MOVING ALL EXTREMITIES, RESTLESS. SHE IS VENTILATED & LIGHTLY SEDATED W/ PROPOFOL. DOES NOT FOLLOW DIRECTIONS & IS DIFFICULT TO REDIRECT WHEN BECOMING AGITATED. BILAT SOFT WRIST RESTRAINTS IN PLACE TO PREVENT ACCIDENTAL SELF-EXTUBATION. LS COARSE, DIM T/O. PT ON VENT W/ SETTINGS: SPONTANEOUS W/ PS 12, PEEP 5 & 45% FIO2. O2 SATS > 90% ON AVG, DESATS WHEN NEEDING TO BE SUCTIONED. MONITOR SHOWS AFIB W/ HR 10-110s, BP STABLE. OGT IN PLACE W/ VHP INFUSING AT GOAL RATE OF 40 ML/HR. NO S/SX INTOLERANCE NOTED. TEMP AGUILAR PATENT/ DRAINING CLEAR YELLOW URINE. SKIN CONDITION OVERALL FRAGILE, INTACT. Q2H REPOSITIONING TO MAINTAIN SKIN INTEGRITY. DR SHAVER AT BEDSIDE THIS AM TO KAMAR PT. HE HAS SPOKEN W/ THE PT's CAREGIVER, PAMELA, WELL THE PT's DAUGHTER. BOTH PERSONS PLAN TO BE AT BEDSIDE TODAY AT SOME POINT. HE HAS PROVIDED THEM BOTH UPDATES & IT IS DISCUSSED THAT THERE ARE NO PLANS FOR EXTUBATION TODAY R/T PT's COPIOUS & THICK ETT SECRETIONS. WILL CONTINUE TO MONITOR & UPDATE NEEDED.
[2022-10-13 11:17] LABS: BASOPHILS ABSOLUTE AUTO 0.06 K/mm3 (0.00-0.23); BASOPHILS PERCENT AUTO 1 % (0-2); EOSINOPHILS ABSOLUTE AUTO 0.35 K/mm3 (0.00-0.68); EOSINOPHILS PERCENT AUTO 3 % (0-6); Hematocrit 28.2 % (33.0-51.0); IMMATURE GRAN ABSOLUTE AUTO 0.27 K/mm3 (0.00-0.10); IMMATURE GRAN PERCENT AUTO 3 % (0-1); LYMPHOCYTES ABSOLUTE AUTO 0.47 K/mm3 (0.84-5.20); LYMPHOCYTES PERCENT AUTO 4 % (21-46); MONOCYTES ABSOLUTE AUTO 0.64 K/mm3 (0.16-1.47); MONOCYTES PERCENT AUTO 6 % (4-13); Mean Corpuscular HGB 28.8 pg (26.0-34.0); Mean Corpuscular HGB Conc 31.9 g/dL (31.5-36.5); Mean Corpuscular Volume 90 fL (80-100); Mean Platelet Volume 10.1 fL (9.1-12.4); NEUTROPHILS ABSOLUTE AUTO 9.14 K/mm3 (1.96-9.15); NEUTROPHILS PERCENT AUTO 84 % (41-73); NRBC ABSOLUTE 0.03 K/mm3 (0.00-0.02); NRBC Auto 0.3 /100 WBC (0.0-0.2); Platelet Count 241 K/mm3 (150-400); RDW Standard Deviation 51.8 fL (35.1-46.3); Red Blood Cell Count 3.12 M/mm3 (3.80-5.20); White Blood Cell Count 10.93 K/mm3 (4.00-11.30)
[2022-10-13 15:08] LABS: Vancomycin, Trough 13.2 ug/mL (5.0-10.0)
--- NOTE | 2022-10-13 15:12 | NUR ---
Spiritual care visit conducted. Patient is lying inbed and asleep. Patient's patient care nursing assistant of 12 yrs, Luis Fernando is bedside. He tells me about his Sikhism adrinao and the adriano of the family. He explains that patient's dtr and granddtr are in route to [place] from [place]. He states that they are all praying for a miracle but are also realistic in regards to what is happening with the patient medically. He asks if I could say a prayer for the patient and the family, which I gladly supply. Patient nods her head affirmingly when I asked her if I could pray for her and again after the prayer (this may clearly have been coincidence) this was the only signs of engagement during several attempts to pull her into the conversation. Luis Fernando is moved to tears by the prayer and voices much appreciation.
--- NOTE | 2022-10-13 17:04 | NUR ---
SHIFT SUMMARY: NO ACUTE CHANGES SINCE PRIOR UPDATES. PT REMAINS INTUBATED & LIGHTLY SEDATED W/ PROPOFOL. SHE CONTINUES TO MOVE ALL EXTREMITIES & BECOMES AGITATED W/ CARE MEASURES/ ADLs AT TIMES. LS COARSE T/O, LARGE AMNTS THICK PATEL SPUTUM SUCTIONED THROUGH ETT. VENT SETTINGS: SPONTANEOUS W/ PS 12, PEEP 5 & 45% FIO2. O2 SATS > 90% ON AVG W/ OCCASIONAL DESATS WHEN NEEDING SUCTIONED. MONITOR SHOWS AFIB W/ HR 90-110s, BP STABLE. OGT IN PLACE W/ VHP INFUSING AT GOAL RATE, NO S/SX INTOLERANCE NOTED. TEMP AGUILAR PATENT/ DRAINING YELLOW URINE - DIURESIS PER EMAR. LABILE TEMP - SEE VS. SKIN CONDITION OVERALL FRAGILE, INTACT. Q2H REPOSITIONING TO MAINTAIN SKIN INTEGRITY. WILL CONTINUE TO MONITOR & REPORT OFF TO ONCOMING RN.
--- NOTE | 2022-10-13 20:15 | NUR ---
ASSUMED CARE AT 1900 PATIENT IS INTUBATED AND SEDATED ON PROPOFOL. RESPONDS TO VERBAL STIMULI, FOLLOWS SIMPLE COMMANDS, NODS YES/NO. 02 SATS 94% ON VENT RR 20s. LS COARSE TO DIMINISHED. LARGE AMOUNT OF THICK PATEL/RED SECRETIONS. VENT SETTINGS SPONT PS 12/5 FI02 45%. HR A.FIB 90s-110, BP STABLE. OG WITH TF INF AT GOAL RATE. TEMP AGUILAR PATENT AND DRAINING TO GRAVITY. ORAL CARE DONE AND PATIENT REPOSITIONED. FAMILY AT BEDSIDE AT START OF SHIFT.
[2022-10-14 04:02] LABS: BASOPHILS ABSOLUTE AUTO 0.07 K/mm3 (0.00-0.23); BASOPHILS PERCENT AUTO 1 % (0-2); EOSINOPHILS ABSOLUTE AUTO 0.36 K/mm3 (0.00-0.68); EOSINOPHILS PERCENT AUTO 3 % (0-6); Hematocrit 27.5 % (33.0-51.0); Hemoglobin 8.8 g/dL (11.5-16.0); IMMATURE GRAN ABSOLUTE AUTO 0.53 K/mm3 (0.00-0.10); IMMATURE GRAN PERCENT AUTO 5 % (0-1); LYMPHOCYTES ABSOLUTE AUTO 0.78 K/mm3 (0.84-5.20); LYMPHOCYTES PERCENT AUTO 7 % (21-46); MONOCYTES ABSOLUTE AUTO 0.56 K/mm3 (0.16-1.47); MONOCYTES PERCENT AUTO 5 % (4-13); Mean Corpuscular HGB 28.9 pg (26.0-34.0); Mean Corpuscular Volume 90 fL (80-100); Mean Platelet Volume 10.5 fL (9.1-12.4); NEUTROPHILS ABSOLUTE AUTO 9.05 K/mm3 (1.96-9.15); NEUTROPHILS PERCENT AUTO 80 % (41-73); NRBC ABSOLUTE 0.03 K/mm3 (0.00-0.02); NRBC Auto 0.3 /100 WBC (0.0-0.2); Platelet Count 251 K/mm3 (150-400); RDW Coefficient Variation 15.8 % (11.7-14.2); RDW Standard Deviation 51.8 fL (35.1-46.3); Red Blood Cell Count 3.05 M/mm3 (3.80-5.20); White Blood Cell Count 11.35 K/mm3 (4.00-11.30)
[2022-10-14 04:22] LABS: Bun/Creatinine Ratio 40.1 (12.0-20.0); Calcium, Blood 9.2 mg/dL (8.5-10.1); Creatinine, Blood 0.97 mg/dL (0.40-1.00); Magnesium, Blood 1.4 mg/dL (1.6-2.4); Potassium, Blood 3.8 mmol/L (3.5-5.5)
--- NOTE | 2022-10-14 05:14 | NUR ---
SHIFT SUMMARY PATIENT REMAINS INTUBATED AND SEDATED ON PROPOFOL. PROPOFOL WAS INCREASED DUE TO AGITATION AND DECREASED VENT COMPLIANCE. AROUSABLE AND FOLLOWS SIMPLE COMMANDS. VENT SETTINGS CHANGED BACK TO AC VC 16/450/5/45% DUE TO PATIENT BEING TACHYPNIEC AND LOW VOLUMES. HR A.FIB 90s-110, BP STABLE. OG WITH TF AT GOAL RATE. TEMP AGUILAR PATENT AND DRAINING TO GRAVITY, YELLOW WITH SEDIMENT. REPOSITIONED Q2 HOURS AND BEDBATH DONE THIS SHIFT. CALLED DR AND WILL REPLACE MAG AND PHOS.
--- NOTE | 2022-10-14 08:00 | NUR ---
PT REMAINS INTUBATED, SEDATED, AND RESTRAINED. PT RESPONDS TO VERBAL STIMULI AND FOLLOWS COMMANDS. PT MAEW. PT GRIMACING, BUT WHEN ASKED IF SHE IS HAVING PAIN, PT SHAKES HER HEAD "NO." PT RESTS QUIETLY WHEN NOT DISTURBED ON PROPOFOL @ 35 MCG/KG/MIN. TEMP 100.0-BLANKETS REMOVED. ECG SHOWS AF WITH RATE 90-110'S.BP STABLE. NO NOTED EDEMA. LUNGS COARSE TO UPPER LOBES AND DIMINISHED IN THE BASES. SATS>90% ON VENT:AC 16, RR 16-22, TV 450, PEEP 5, FIO2 45%. ETT SUCTION PRODUCTIVE OF A LARGE AMOUNT OF THICK YELLOW/BLOOD TINGED SECRETIONS. PT DOES NOT GRIMACE WHEN ABDOMEN IS PALPATED AND APPEARS TO BE TOLERATING OGTF @ GOAL OF 40 CC/HR WITHOUT DIFFICULTY. AGUILAR TO BSD WITH DAISHA URINE/SEDIMENT NOTED. PT SKIN IS PALE AND FRAIL, BUT OVERALL C/D/I AND NO NOTED SKIN BREAKDOWN. AM CARE, ORAL CARE, AGUILAR/MICHAEL CARE DONE AND PT REPOSITIONED. PT DAUGHTER AND GRAND-DAUGHTER AT BEDSIDE AND FULL UPDATE GIVEN. 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 PT DAUGHTER FULLY UPDATED AND PROVIDED WITH THE INFORMATION SHE REQUESTED.
--- NOTE | 2022-10-14 09:30 | NUR ---
DR. SHAVER IN TO SEE PT-FULL UPDATE GIVEN. DR. SAHVER SPOKE WITH PT FAMILY AT LENGTH REGARDING PLAN OF CARE.
[2022-10-14 11:04] LABS: Adenovirus Not Detected (NOT DETECT); Bordetella pertussis Not Detected (NOT DETECT); Chlamydophila pneumoniae Not Detected (NOT DETECT); Coronavirus 229E Not Detected (NOT DETECT); Coronavirus HKU1 Not Detected (NOT DETECT); Coronavirus NL63 Not Detected (NOT DETECT); Coronavirus OC43 Not Detected (NOT DETECT); Human Metapneumovirus Not Detected (NOT DETECT); Human Rhinovirus/Enterovirus Not Detected (NOT DETECT); Influenza A/2009-H1 Not Detected (NOT DETECT); Influenza A/H1 Not Detected (NOT DETECT); Influenza A/H3 Not Detected (NOT DETECT); Influenza B Not Detected (NOT DETECT); Mycoplasma pneumoniae Not Detected (NOT DETECT); Parainfluenza Virus 1 Not Detected (NOT DETECT); Parainfluenza Virus 2 Not Detected (NOT DETECT); Parainfluenza Virus 3 Not Detected (NOT DETECT); Parainfluenza Virus 4 Not Detected (NOT DETECT); Respiratory Syncytial Virus Not Detected (NOT DETECT); SARS-Cov-2 (COVID-19), BioFire Not Detected (NOT DETECT)
--- NOTE | 2022-10-14 12:00 | NUR ---
PT ABLE TO INDICATE TO HER GRAND-DAUGHTER THAT HER LOWER BACK WAS HURTING-MED WITH FENTANYL 50 MCG IVP X 1 -SEE EMAR. PT CURRENTLY CPOT 0-SHE IS RESTING QUIETLY ON PROPOFOL @ 35 MCG/KG/MIN. TEMP 100.6 ECG SHOWS SR WITH RATE 70-80'S. BP STABLE. LUNGS REMAIN COARSE TO UPPER LOBES AND DIMINISHED IN THE BASES. SATS>90% NO VENT CHANGES. ETT SUCTION CONTINUES TO BE PRODUCTIVE OF LARGE AMOUNT OF THICK, YELLOW/RED TINGED SECRETIONS. PT CONTINUES TO TOLERATE OGTF WELL AT GOAL CBG 415- AWARE. FAST ACTING INSULIN CHANGED TO REGULAR INSULIN AND COVERED PER SLIDING SCALE-SEE EMAR. AGUILAR DRAINING DARK, YELLOW URINE WITH SMALL AMOUNT OF SEDIMENT.
--- NOTE | 2022-10-14 13:10 | NUR ---
Spiritual care visit condcuted. Patient is lying in bed and resting. Patient's dtr, Little and Janette plascencia are bedside. They are very attentive to patient and talk at length about patient's qualities and tell stories about her life, her adriano and her ways of navigating through life. Little emphasizes pt's Chrisitan adriano, the adriano of her father and the adriano that is passed down to the rest of the family. 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 I normalize their experience and provide therapeutic listening and prayer. The family respond well and voice appreciation for the spiritual care visit. I will continue to remain available to patient and family.
--- NOTE | 2022-10-14 14:00 | NUR ---
CBG 390-DR. SHAVER MADE AWARE. PT GIVEN NOW DOSE OF LANTUS/LONG ACTING INSULIN 20 UNITS SQ-SEE EMAR. PT GRIMACING, COUGHING, AND PULLING ON RESTRAINTS. MED WITH FENTANYL 50 MCG IVP X 1 FOR PAIN/SEDATION ADJUNCT.
[2022-10-14 14:48] LABS: Vancomycin, Trough 17.6 ug/mL (5.0-10.0)
--- NOTE | 2022-10-14 17:37 | NUR ---
PT REMAINS INTUBATED, SEDATED, AND RESTRAINED. PROPOFOL DRIP CONTINUES @ 35 MCG/KG/MIN. PT MEDICATED WITH FENTANYL 50 MCG IVP SEVERAL TIMES THROUGH OUT THE SHIFT FOR PAIN/SEDATION ADJUNCT. CURRENT CPOT 0. PT REMAINS FEBRILE-TEMP 100.6. ECG SHOWS SR WITH PAC'S WITH RATE 70'S. BP STABLE. LUNGS REMAIN COARSE TO UPPER LOBES AND DECREASED IN THE BASES. PT HAS REMAINED ON AC THIS SHIFT. RR 16-22. MAINTAINS SATS>90% ON FIO2 45%-NO VENT CHANGES THIS SHIFT. ETT SUCTION CONTINUES TO BE PRODUCTIVE OF A LARGE AMOUNT OF THICK, YELLOW/BLOOD TINGED SECRETIONS. OGTF TOLERATED WELL. CBG 415-DR. SHAVER AWARE. SLIDING SCALE CHANGED TO HIGH SCALE-SEE NEW ORDER. URINE OUTPUT 650 CC THIS SHIFT. MEPILEX TO COCCYX REMOVED AND COCCYX/BUTTOCKS VISUALIZED. NO SKIN BREAKDOWN NOTED AND COCCYX SLIGHTLY PINK.
--- NOTE | 2022-10-14 21:12 | NUR ---
ASSUMED CARE. FAMILY WENT HOME FOR THE EVENING. IVF NS @ 100ML/HR, PROPOFOL AT 35MCQ. TF INFUSING AT GOAL OF 40ML/HR, GAVE SEDATION VACATION. DENIED PAIN. SHE WAS ABLE TO FOLLOW SIMPLE COMMANDS, REHABILITATION SERVICES COORDINATOR BILATERAL WEAK BUT EQUAL, HAD PURPOSEFUL MOVEMENTS. LARGE AMOUNTS OF PINK TINGED SECREATIONS SUCTIONED FROM ETT TUBE WITH LAVAGE DUE TO THIN SECREATIONS FOR SUCTIONING. LARGE AMOUNT FROM ORAL CAVITY, CREAM COLOR. LS COARSE BILATERAL UPPER LOBES, DIM IN BASES, VENT SETTING AC/VC: 16/450/5/45%. SINUS ON MONITOR RATE IN 80'S. AGUILAR PATENT AND DRAINING. TEMP DECREASED TO 99. SKIN WARM, PALE. BLANCHABLE REDNESS ON COCCYX, DRESSING IN PLACE.
[2022-10-15 04:28] LABS: Hematocrit 25.7 % (33.0-51.0); Hemoglobin 8.2 g/dL (11.5-16.0); IMMATURE GRAN ABSOLUTE AUTO 0.96 K/mm3 (0.00-0.10); IMMATURE GRAN PERCENT AUTO 8 % (0-1); Mean Corpuscular HGB Conc 31.9 g/dL (31.5-36.5); Mean Corpuscular Volume 91 fL (80-100); Mean Platelet Volume 10.8 fL (9.1-12.4); NRBC ABSOLUTE 0.04 K/mm3 (0.00-0.02); NRBC Auto 0.3 /100 WBC (0.0-0.2); Platelet Count 238 K/mm3 (150-400); RDW Coefficient Variation 15.9 % (11.7-14.2); RDW Standard Deviation 52.6 fL (35.1-46.3); Red Blood Cell Count 2.83 M/mm3 (3.80-5.20); White Blood Cell Count 12.72 K/mm3 (4.00-11.30)
[2022-10-15 05:20] LABS: BAND PERCENT MAN 11 % (0-8); BASOPHILS PERCENT MAN 0 % (0-2); EOSINOPHILS PERCENT MAN 2 % (0-6); LYMPHOCYTES PERCENT MAN 8 % (21-46); MONOCYTES PERCENT MAN 0 % (4-13); SEG NEUTROPHILS PERCENT MAN 79 % (41-73); TOTAL CELLS COUNTED 100
--- NOTE | 2022-10-15 06:39 | NUR ---
SHIFT SUMMARY: PT REMAINS SEDATED ON PROPOFOL 35MCQ/HR. SEDATION VACATION GIVEN THIS SHIFT, WOKE UP WITH IN 5-7 MINUTES AND ABLE TO SHAKE HEAD YES AND NO, AND FOLLOW SIMPLE COMMANDS. LS REMAIN COARSE WITH DIM BASES. AC/VC VENT SETTINGS REMAIN THE SAME. LG AMOUNT OF SECREATIONS FROM ETT TUBE AND ORALLY. PINK TINGED AT TIMES. REAMINED IN SINUS RYTHEM WITH RATE 70-80 THIS SHIFT. BP STABLE. SHE DOES DROP SLIGHTLY AFTER GETTING FENTANYL. TF REMAINS AT GOAL, NO BM. AGUILAR OUTPUT 880 YELLOW WITH SEDIMENT. POWERGLIDE DRESSING CHANGED, LABS STILL PENDING.
--- NOTE | 2022-10-15 08:00 | NUR ---
PT GIVEN SEDATION VACATION AND WEANING TRIAL. DURING THIS TIME, PT WAS AWAKE, ALERT, AND FOLLOWING COMMANDS. PT BECAME VERY RESTLESS, AGITATED, AND STARTED SITTING UP IN BED/PULLING ON RESTRAINTS. PT PLACED ON PS 12/4-FIO2 45%. PROPOFOL WAS RESUMED AT 20 MCG/KG/MIN. PT REMAINED VERY AGITATED AND RN/RT UNABLE TO GET PT CALM AND TAKE DEEP BREATHS. MS REMAINED ON PS FOR A TOTAL OF 15 MINUTES. HER RR RATE WAS IN THE MID 40'S. PT USING ACCESSORY MUSCLES TO BREATH. SATS DROPPED TO 80%. PT MED WITH ATIVAN 1 MG IVP X 1 AND FENTANYL 50 MCG IVP X 1 FOR SEDATION ADJUNCT/PAIN. VENT CHANGED TO PREVIOUS SETTINGS AC 16, RR 28, TV 450, PEEP 5, FIO2 TITRATED UP TO 60% TO KEEP SATS>90%. LUNGS ARE COARSE TO UPPER LOBES AND DECREASED IN THE BASES. ETT SUCTION PRODUCTIVE OF LARGE AMOUNT OF THICK, WHITE SECRETIONS. OGTF TOLERATED WELL AT GOAL. NO NOTED GI DISTRESS. AGUILAR TO BSD WITH ADEQUATE AMOUNT OF YELLOW URINE WITH SMALL AMOUNT OF SEDIMENT. MEPILEX REMOVED TO VISUALIZE COCCYX. NO NOTED REDNESS. NO SKIN BREAKDOWN. PT SKIN OVERALL C/D/I. LIDOCAINE PATCH PLACED TO PT LOWER BACK. PT DAUGHTER IN FOR VISIT. VISITORS WERE HELD DURING SEDATION VACATION AND WEANING TRIAL PT WAS VERY ANXIOUS AND SATS DROPPED TO THE 80'S. PT DAUGHTER APPEARS ANXIOUS AND STATES " I SHOULD HAVE BEEN HERE EARLIER. SHE WOULD HAVE LISTENED TO ME AND TOLERATED IT ALOT BETTER IF I WAS HERE."
--- NOTE | 2022-10-15 10:00 | NUR ---
DURING REPOSITIONING OF PT, PT DAUGHTER STATED "MOM, SQUEEZE MY HAND IF YOU WANT ME TO YELL AT THE NURSE FOR YOU." PT GRIMACING, COUGHING, AND REACHING FOR ETT DURING POSITION CHANGE. PT MED WITH FENTANYL 50 MCG IVP X1-SEE EMAR.
--- NOTE | 2022-10-15 11:16 | NUR ---
Ethics consult order received and processed. Medical notes, prognostic indicators, and social matrix reviewed. 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 Despite the POLST, which stipulates a non-aggressive approach to care, the clinical context could have warranted the escalated treatement plan. For example, if it was understood that the patient herself would have preferred a short dave of ramped up interventional support, and then a discontinuation if such measures failed to achieve optimization, such actions would then be morally licit. If the principal is now clinically deteriorating, and the medical concensus is that her recovery or stabalization is improbable, then they should unreservedly honor her advance care planning instrument, and de-escelate treatment. Persisting with aggressive measures under such circumstances, would be considered unwanted over-treatment, and would constitute a violation of the principals autonomy, right to self determination, and dignity of personhood. Thank you for this consult. Apollo Montelongo ThD, CANDICE
--- NOTE | 2022-10-15 11:45 | NUR ---
DR. SCOTT AT BEDSIDE. PT PLACED ON PS 10/5-FIO2 50%
--- NOTE | 2022-10-15 11:54 | NUR ---
MAD consult received and processed. It is reported and documented by clinical staff that the principals daughter is conducting herself in a highly disruptive and aggressive fashion. Per hospital policy ([id number]) visitation restrictions may be initiated when outside visits are detrimental to the care environment and or infringe on the rights and privileges of others. If it is preferred that the daughters access privileges are reduced or eliminated, then according to the same policy, the nurse or physician must explain to the daughter why her visitation privileges are being revoked. My recommendation, if this has not already occurred, is that the daughter be gently informed that her behavior is problematic, and that she is at risk of losing access to the ICU, if she refuses to comply. If the restriction is enacted, it needs to be documented in the medical record in a prgress note. The appropriateness of continued restriction should be revaluated no less than a weekly basis, and possibly more often, if the patient is considered EOL.
--- NOTE | 2022-10-15 12:15 | NUR ---
DR. SCOTT REMAINS AT THE BEDSIDE. PT SATS 87%. PS INCREASED TO 15/5-FIO2 50%. PT GRIMACING AND PULLING ON RESTRAINTS. PRECEDEX DRIP INITIATED @ 0.4 MCG/KG/MIN. PROPOFOL CONTINUES @ 25 MCG/KG/MIN. PT MED WITH FENTANYL 50 MCG IVP X 1 FOR PAIN/SEDATION ADJUNCT.ECG SHOWS SR WITH RATE 70'S. BP STABLE. LUNGS REMAIN COARSE TO UPPER LOBES AND DIMINISHED THROUGH OUT. DR. SCOTT SPOKE WITH PT DAUGHTER SHU AT LENGTH REGARDING PLAN OF CARE.
--- NOTE | 2022-10-15 13:38 | NUR ---
Received MAD Consult, however, MAD Consults are orders for patient behavior and the behavior concern was for the daughter. If there are behavioral concerns with visitors, staff should go up the chain of command and notify Security if necessary. I notified Jeff in Security of potential problem. He went to check on RN and patient, and the daughter was not present. I spoke with RN, Lisa, and she told me that there were no issues with the daughter at present. She will contact Security should anything arise.
--- NOTE | 2022-10-15 16:30 | NUR ---
PT ASSISTED OOB TO CHAIR USING CEILING LIFT. TOLERATED WELL ON PROPOFOL @ 25 MCG/KG/MIN AND PRECEDEX @ 0.4 MCG/KG/MIN. PT REMAINS ON PS 15/5 FIO2 50%. MAINTAINS SATS>90%. ETT SUCTION CONTINUES TO BE PRODUCTIVE OF LARGE AMOUNT OF THICK, YELLOW/BLOOD TINGED SPUTUM. LUNGS REMAIN COARSE TO UPPER LOBES AND DIMINISHED THROUGH OUT. PT CONTINUES TO TOLERATE OGTF WELL. CBG 300 COVERED PER SLIDING SCALE SEE EMAR. URINE OUTPUT 700 CC THIS SHIFT. PT STILL HAS NOT HAD A BM-WILL FOLLOW UP WITH EITHER MOM OR SUPPOSITORY. THE COMMUNICATIONS AND INTERACTIONS WITH PT DAUGHTER SHU HAVE IMPROVED THIS AFTERNOON. PT DAUGHTER APPEARS LESS ANXIOUS AND HAS BEEN VERY PLEASANT AND COOPERATIVE. PLAN TO LEAVE PT IN CHAIR FOR 2 HOURS IF TOLERATED-POSSIBLY LONGER.
[2022-10-15 17:20] LABS: Bun/Creatinine Ratio 44.7 (12.0-20.0); Calcium, Blood 8.8 mg/dL (8.5-10.1); Creatinine, Blood 1.14 mg/dL (0.40-1.00); Phosphorus, Blood 3.7 mg/dL (2.5-4.9); Potassium, Blood 4.3 mmol/L (3.5-5.5)
--- NOTE | 2022-10-15 20:00 | NUR ---
ASSUMED CARE OF PT AT 1900. REPORT RECEIVED AT BEDSIDE. PT'S FAMILY AT BEDSIDE. PT ON PRESSURE SUPPORT WITH FIO2 AT 50 PERCENT. MAINTAINS SATURATIONS > 90 PERCENT. PT'S FAMILY LEAVE FOR THE NIGHT. WILL REVIEW CHART AND PLAN OF CARE FOR THIS PT.
--- NOTE | 2022-10-15 23:00 | NUR ---
PT ON PROPOFOL AT 15 MCG'S/KG/MIN AND PRECEDEX AT 0.4 MCG'S PER KG PER HOUR. REMAINS IN BEDSIDE RECLINER CHAIR. Q 2 HOUR TURNS IN CHAIR WITH PILLOWS. PT TOLERATES THIS WELL.
[2022-10-16 05:23] LABS: Hematocrit 29.1 % (33.0-51.0); Mean Corpuscular HGB 28.8 pg (26.0-34.0); Mean Corpuscular HGB Conc 30.9 g/dL (31.5-36.5); Mean Corpuscular Volume 93 fL (80-100); Mean Platelet Volume 10.8 fL (9.1-12.4); NRBC ABSOLUTE 0.05 K/mm3 (0.00-0.02); NRBC Auto 0.3 /100 WBC (0.0-0.2); Platelet Count 254 K/mm3 (150-400); RDW Coefficient Variation 15.8 % (11.7-14.2); RDW Standard Deviation 53.1 fL (35.1-46.3); Red Blood Cell Count 3.12 M/mm3 (3.80-5.20); White Blood Cell Count 15.72 K/mm3 (4.00-11.30)
[2022-10-16 05:42] LABS: Albumin, Blood 1.5 g/dL (3.4-5.0); Albumin/Globulin Ratio 0.3 (0.8-1.8); Bilirubin, Total 0.4 mg/dL (0.1-1.0); Bun/Creatinine Ratio 46.1 (12.0-20.0); Calcium, Blood 9.4 mg/dL (8.5-10.1); Creatinine, Blood 1.02 mg/dL (0.40-1.00); Globulin, Blood 4.9 g/dL (2.2-4.0); Potassium, Blood 4.4 mmol/L (3.5-5.5); Total Protein, Blood 6.4 g/dL (6.4-8.2)
[2022-10-16 06:18] LABS: BAND PERCENT MAN 2 % (0-8); BASOPHILS PERCENT MAN 0 % (0-2); EOSINOPHILS PERCENT MAN 0 % (0-6); LYMPHOCYTES ABSOLUTE MAN 0.62 K/mm3 (0.84-5.20); LYMPHOCYTES PERCENT MAN 4 % (21-46); METAMYELOCYTE ABSOLUTE MAN 0.31 K/mm3 (0.00-0.00); METAMYELOCYTE PERCENT MAN 2 % (0-0); MONOCYTES ABSOLUTE MAN 0.62 K/mm3 (0.16-1.47); MONOCYTES PERCENT MAN 4 % (4-13); MYELOCYTE ABSOLUTE MAN 0.62 K/mm3 (0.00-0.00); MYELOCYTE PERCENT MAN 4 % (0-0); NEUTROPHILS ABSOLUTE MAN 13.51 K/mm3 (1.96-9.15); SEG NEUTROPHILS PERCENT MAN 84 % (41-73); TOTAL CELLS COUNTED 100
--- NOTE | 2022-10-16 06:30 | NUR ---
PT HAS BEEN TRANSFERRED BACK TO BED FROM RECLINER CHAIR. OVERHEAD LIFT USED. 2 RN'S, CITY DISTRIBUTION CLERK, AND RT FOR SAFE TRANSFER. PT TOLERATES THIS FAIR. DOES MAKE ATTEMPTS TO REACH TOWARDS HER ETT. HAVE SUCTIONED PT AT APPROX Q 1-2 HOURS WITH LARGE AMOUNTS OF WHITE COLORED SECRETIONS. HAVE PLACED PROPOFOL TO OFF TO PROVIDE FOR SEDATION VACATION. PT BECOMES MORE ACTIVE AND ATTEMPTS TO GET AHOLD OF HER ETT. WILL CONTINUE TO MONITOR PT, AND WILL REPORT OFF TO ON COMING RN.
--- NOTE | 2022-10-16 07:51 | NUR ---
Assumed care of pt at 0715 Bedside report received from ZOEY Sigala. Pt is on precedex only, propofol currently on standby for weaning trial. On spontaneous vent settings PS 15/5 at 50% FIO2 to maintain O2 Sat greater than 88%. Opens eyes spontaneously and follows commands. Continues to reach for the ETT, patient and restraints repositioned and pt verbally instructed on importance of not pulling on lines/tubes, will continue to reinforce. Continuous TF at 40ml/hr (goal) via OGT. No BM on previous shift. Motley to gravity patent and draining clear yellow urine. No family at bedside currently. RN to continue to monitor.
--- NOTE | 2022-10-16 11:06 | NUR ---
"Spiritual Care | Family/Nurse Request Pt. is mostly non-responsive. Daughter Little is present and attentive to Pts. needs. Facilitated life review, and in the process determined that this Pt. is known to this taper and floater. Built rapport with daughter. Prayed with Pt. and daughter. Daughter verbalized gratitude for the Spiritual Care visit. Will continue to be available to the family."
--- NOTE | 2022-10-16 14:30 | NUR ---
TEMP 101.O DESPITE TYLENOL 5 HOURS AGO, PT TEMP IS RISING. CURRENTLY 101.0. DR. PETERSEN AND DR. SCOTT ADDED ANOTHER ANTIBIOTIC AND BLOOD CULTURES X2 (DRAWN). AWAITING VANCO TROUGH. ICE PACKS PLACED TO AXILLA AND GROIN TO ASSIST IN COOLING. APAP TO BE ADMINISTERED WHEN DUE. DAUGHTER AND CAREGIVER AT BEDSIDE, UPDATED ON POC BY BOTH MD'S. ALL QUESTIONS ANSWERED. NO CHANGE IN ETT OR ORAL SECRETIONS. URINE REMAINS CLEAR AND ADEQUATE AMOUNT. NO REDNESS, SWELLING OR WOUNDS NOTED. PT IS UP IN CHAIR (VIA LIFT). SPUTUM CX SENT ON PREVIOUS SHIFT. RN TO CONTINUE TO MONITOR
[2022-10-16 15:06] LABS: Vancomycin, Trough 19.5 ug/mL (5.0-10.0)
--- NOTE | 2022-10-16 18:18 | NUR ---
END OF SHIFT SUMMARY NEURO: ALERT AND FOLLOWING ALL COMMANDS. ORIENTED TO PERSON ONLY. PRECEDEX INFUSING, PROPOFOL ON STANDBY CARDIAC: SR WITH 1ST DEGREE AV BLOCK VS CONTROLLED A FIB. BP WNL. RESP: RHONCHI UPPER, DIMISHED BASES. OCCAS PRODUCTIVE COUGH, SPUTUM SENT FOR CULTURE LAST SHIFT. SPONTANEOUS VENT SETTINGS FOR MOST OF SHIFT, SWITCHED TO SIMV/VC AFTER FENTANYL DOSE DUE TO SHORT PERIODS OF APNEA. SPO2 > 92%. ACETYLCYSTINE PER TUBE AND VEST THERAPY STARTED TODAY TO HELP WITH LOOSENING OF THICK MUCOUS. GI: BS HYPOACTIVE, TF INFUSING AT 40ML/HR (GOAL). PT TOLERATING WELL. MIRILAX STARTED TODAY, PRN SUPPOS ORDERED PRN, NO BM IN SEVERAL DAYS. : AGUILAR TO GRAVITY DRAINING CLEAR YELLOW URINE. 1000ML OUT. SKIN: INTACT, MEPILEX TO COCCYX (PREVENTATIVE). SKIN UNDER MEPILEX CLEAR WTIH NO REDNESS OR BREAKDOWN NOTED. POSITIION CHANGED EVERY 2 HOURS. OOB TO CHAIR AT 1400. LIDOCAINE PATCH TO LOWER BACK AT 0900. SOFT WRIST RESTRAINTS REMOVED EVERY 2 HOURS AND ROM COMPLETED. IV: PG TO LEFT UPPER ARM, PIV TO RIGHT FA. BOTH INFUSING WELL. NS TKO + IVPB. TMAX 101.0. MEDICATED WITH APAP EVERY 6 HOURS, ICE PACKS PLACED WITH GOOD RESULT. BC X2 DRAWN AND ADDITIONAL ATB ORDERED AND GIVEN. DAUGHTER AND CAREGIVER AT BEDSIDE THROUGHOUT SHIFT, BOTH UPDATED ON POC AND ALL QUESTIONS ANSWERED. DAUGHTER QUESTIONS CARE OFTEN, REMINDS STAFF OF HOW TO CARE FOR PT, REASSURED AND PROVIDED SUPPORT TO FAMILY. SPIRITUAL CARE VISIT PER FAMILY REQUEST. ALLOWED FAMILY TO BE INVOLVED IN HANDS ON CARE MUCH POSSIBLE.
--- NOTE | 2022-10-16 20:00 | NUR ---
ASSUMED CARE OF PT AT 1915. REPORT RECEIVED AT BEDSIDE. PT PRESENTS IN BED. HAS EYES OPEN WHILE PT'S DAUGHTER PROVIDING TACTILE STIMULI. PT IN NO APPARENT DISTRESS AT THIS TIME. PT IN RECLINER CHAIR. DOES TEND TO HAVE HER LEGS OFF FOOTREST TO THE LEFT SIDE. THIS IS COMMON FOR PT TO DO. PRECEDEX NOTED TO BE AT 0.7 MCG'S/KG/HOUR. DAUGHTER EXPRESSES HER CONCERN ABOUT PT NOT HAVING BM. DISCUSSED PLAN. ALSO ADDS THAT SHE IS CONCERNED ABOUT DOSE OF FENTANYL THAT HAS BEEN GIVEN. 50 MCG'S PRN. DISCUSSED THIS WITH PT WELL. WILL REVIEW CHART AND PLAN OF CARE FOR THIS PT.
[2022-10-17 05:19] LABS: BASOPHILS ABSOLUTE AUTO 0.08 K/mm3 (0.00-0.23); BASOPHILS PERCENT AUTO 1 % (0-2); EOSINOPHILS ABSOLUTE AUTO 0.28 K/mm3 (0.00-0.68); EOSINOPHILS PERCENT AUTO 2 % (0-6); Hematocrit 28.3 % (33.0-51.0); Hemoglobin 8.5 g/dL (11.5-16.0); IMMATURE GRAN ABSOLUTE AUTO 0.67 K/mm3 (0.00-0.10); IMMATURE GRAN PERCENT AUTO 4 % (0-1); LYMPHOCYTES PERCENT AUTO 6 % (21-46); MONOCYTES ABSOLUTE AUTO 0.58 K/mm3 (0.16-1.47); MONOCYTES PERCENT AUTO 4 % (4-13); Mean Corpuscular HGB 28.5 pg (26.0-34.0); Mean Corpuscular Volume 95 fL (80-100); Mean Platelet Volume 11.2 fL (9.1-12.4); NEUTROPHILS ABSOLUTE AUTO 13.58 K/mm3 (1.96-9.15); NEUTROPHILS PERCENT AUTO 84 % (41-73); NRBC ABSOLUTE 0.03 K/mm3 (0.00-0.02); NRBC Auto 0.2 /100 WBC (0.0-0.2); Platelet Count 257 K/mm3 (150-400); RDW Coefficient Variation 15.8 % (11.7-14.2); RDW Standard Deviation 53.8 fL (35.1-46.3); Red Blood Cell Count 2.98 M/mm3 (3.80-5.20); White Blood Cell Count 16.09 K/mm3 (4.00-11.30)
[2022-10-17 05:55] LABS: Albumin, Blood 1.5 g/dL (3.4-5.0); Albumin/Globulin Ratio 0.3 (0.8-1.8); Bilirubin, Total 0.3 mg/dL (0.1-1.0); Bun/Creatinine Ratio 46.9 (12.0-20.0); Calcium, Blood 9.4 mg/dL (8.5-10.1); Creatinine, Blood 0.98 mg/dL (0.40-1.00); Potassium, Blood 3.6 mmol/L (3.5-5.5); Total Protein, Blood 6.5 g/dL (6.4-8.2)
--- NOTE | 2022-10-17 06:40 | NUR ---
PT HAS BEEN TOLERANT OF TURNS IN BED. DOES MAKE ATTEMPTS TO REACH UP TOWARDS ETT WHEN HER RESTRAINTS RELEASED FOR TURNS. CONTINUES ON PROPOFOL AT 15 MCG'S/KG/MIN. AND PRECEDEX AT 0.5 MCG'S/KG/HOUR. HAVE SUCTIONED PT WITH RETURN OF MODERATE TO LARGE AMOUNTS OF WHITE COLORED SECRETIONS. FULL BED BATH DONE EARLIER IN NIGHT. WILL CONTINUE TO MONITOR PT, AND WILL REPORT OFF TO ONCOMING RN.
--- NOTE | 2022-10-17 07:15 | NUR ---
ASSUMED CARE OF PT AT 0715. PT APPEARS TO BE RESTING COMFORTABLY, IS LIGHTLY SEDATED WITH PROPOFOL AND PRECEDEX INFUSING. VENT SETTINGS REMAIN UNCHANGED, SIMV 14/5/40%. LUNGS LESS COARSE TODAY, ETT SECRETIONS MINIMAL. AFIB ON THE MONITOR 50-70. BP WNL FOR PT. TF INFUSING AT 40ML/HR (GOAL). AGUILAR PATENT AND DRAINING CLEAR YELLOW URINE. PIV AND PG INFUSING. FAMILY ARRIVED TO BEDSIDE AT 0700, UPDATED PROVIDED TO FAMILY BY OFFGOING RN. RN TO CONTINUE TO MONITOR
--- NOTE | 2022-10-17 10:33 | NUR ---
ADVANCED OGT 15CM 0800 ASSESSMENT REVEALS OGT TO BE FURTHER OUT THAN PRIOR. AIR INFUSED INTO TUBE CANNOT BE HEARD OVER THE STOMACH. STOPPED TF AND HELD PT MEDS. CXR ORDERED TO EVALUATE TUBE PLACEMENT. CXR SHOWS NGT NEEDS TO BE ADVANCED APPROX 15CM PER DR SCOTT. TUBE ADVANCED, REPEAT CXR ORDERED. RN TO CONTINUE TO MONITOR.
--- NOTE | 2022-10-17 18:36 | NUR ---
END OF SHIFT SUMMARY NEURO: REMAINS A/O X PERSON. NODS APPROPRIATELY AND FOLLOWS COMMANDS. PROPOFOL ON STANDBY AT 12OO WHEN PT OOB TO CHAIR. PRECEDEX INFUSING AT 0.5. CARDIAC: ATRIAL FIB RATE 70-90'S. BP WNL. RESP: SIMV/VC UNTIL OOB TO CHAIR AT NOON, THEN ON SPONT PS AT 15. PS DECREASED TO 10 AT 1700 BY MD, PT TOLERATING WELL WITH TIDAL VOLUMES > 400. O2 SAT > 90%. LUNGS CLEAR WITH OCCASIONAL COARSENESS THAT CLEARS WITH SUCTIONING. MINIMAL SECRETIONS SUCTIONED FROM ETT. GI: OGT ADVANCED AND CXR VERIFIED PLACEMENT. TF HELD UNTIL PLACEMENT VERIFIED BY MD. TUBE FEEDING RESTARTED AT 40ML/HR, H20 FLUSH INCREASED TO 250ML EVERY 4 HOURS TO HELP DECREASE SODIUM. DENIES NAUSEA. NO BM. MIRILAX PT AND DULCOLAX MA GIVEN WITH NO RESULTS. BS HYPOACTIVE. : AGUILAR TO GRAVITY DRAINING YELLOW URINE WITH SMALL AMOUNT OF SEDIMENT. 550ML OUT. SKIN: UNCHANGED. BUE SOFT WRIST RESTRAINTS REMOVED [id number] WITH TURNS AND ROM PROVIDED. POSITION CHANGED Q2 HOURS AND PRN TO MAINTAIN SKIN INTEGRITY. IV: PG AND PIV INFUSING. SEE ICU-C FLOWSHEET FOR TITRATIONS. DAUGHTER AND CAREGIVER AT BEDSIDE. DAUGHTER RESPONDS WELL TO REDIRECTION AND EDUCATION. AT ONE POINT, DAUGHTER ATTEMTPED TO PLACE RESTRAINTS AROUND PATIENT'S FOREHEAD TO HOLD PATIENT'S HEAD TO THE BED SHE FELT PATIENT WAS LEANING HER HEAD TOO FAR FORWARD. EDUCATED ON SAFETY CONCERNS AND THAT THIS IS NOT AN APPROPRIATE USE OF RESTRAINTS. DAUGHTER VERBALIZED UNDERSTANDING. DIRECTED DAUGHTER TO INFORM RN OF ANY NEEDED POSITION CHANGES OR CONCERN FOR PT'S DISCOMFORT.
[2022-10-18 03:36] LABS: Hematocrit 26.6 % (33.0-51.0); Hemoglobin 8.1 g/dL (11.5-16.0); Mean Corpuscular HGB 28.9 pg (26.0-34.0); Mean Corpuscular HGB Conc 30.5 g/dL (31.5-36.5); Mean Corpuscular Volume 95 fL (80-100); Mean Platelet Volume 11.2 fL (9.1-12.4); NRBC ABSOLUTE 0.02 K/mm3 (0.00-0.02); NRBC Auto 0.1 /100 WBC (0.0-0.2); Platelet Count 248 K/mm3 (150-400); RDW Coefficient Variation 15.7 % (11.7-14.2); RDW Standard Deviation 54.1 fL (35.1-46.3); White Blood Cell Count 14.23 K/mm3 (4.00-11.30)
[2022-10-18 03:53] LABS: Bun/Creatinine Ratio 43.5 (12.0-20.0); Calcium, Blood 9.2 mg/dL (8.5-10.1); Creatinine, Blood 1.08 mg/dL (0.40-1.00); Potassium, Blood 3.7 mmol/L (3.5-5.5)
--- NOTE | 2022-10-18 06:09 | NUR ---
SHIFT SUMMARY: Patient remains intubated, lightly sedated on precedex. Intermittently agitated, coughing, attempts to reach for tube. Medicated with fentanyl pushes for pain throughout the night. Moved from the chair to bed around 2330 using the lift/sling with RT and another RN present. No changes to ventilator settings. Vitals stable. Patient now in Afib.
--- NOTE | 2022-10-18 07:28 | NUR ---
ASSUMED PT CARE AT 0700 PT REMAINS INTUBATED. PRECEDEX ON AT 0.5 MCG/KG/HR. PT AROUSES TO VERBAL STIMULI, ABLE TO FOLLOW COMMANDS. VENT SPONTANEOUS WITH PS 10/5; FIO2 45%, RR 18, TV >450, O2 SATS 93%. MIDLINE TO LEFT UPPER ARM. PERIPHERAL TO RIGHT FOREARM. TEMP AGUILAR DRAINING YELLOW URINE; TEMP 99.5. VHP INFUSING AT GOAL OF 45ML/HR. FLUSHES 250CC Q4 HOURS D/T ELEVEATED SODIUM OF 146. PT IS IN AFIB WITH RATE 70'S. BP'S STABLE. FAMILY AT BEDSIDE AT THIS TIME. WILL CONTINUE TO MONITOR.
--- NOTE | 2022-10-18 09:45 | NUR ---
DR. SCOTT AT BEDSIDE DECREASED PS FROM 10 TO 5. OFF PRECEDEX AT THIS TIME.
--- NOTE | 2022-10-18 12:38 | NUR ---
REASSESSMENT PT UP IN CHAIR. OFF PRECEDEX FOR A COUPLE OF HOURS AND TOLERATING WELL; HOWEVER, SINCE PT WAS TRANSFERRED TO CHAIR HER RR INCREASED TO 30 AND HR 110-120. VENT REMAINS IN SPONTANEOUS MODE WITH PRESSURE SUPPORT 5/5; FIO2 45%. PT CONTINUES TO FOLLOW COMMANDS. FAMILY REMAINS AT BEDSIDE VERY SUPPORTIVE AND HELPS PT WITH THERAPEUTIC TALK AND TOUCH. ORDERS FROM DR. SCOTT TO RESTART PRECEDEX AT 0.3 MCG/KG/HR. WILL CONTINUE WITH PS 5/5. PLAN IS GIVE PT A COUPLE MORE DAYS ON THE VENTILATOR FOR SUPPORT BEFORE CONSIDERING EXTUBATION. FAMILY ALL AWARE AND IN AGREEANCE WITH PLAN OF CARE. WILL CONTINUE TO MONITOR AT THIS TIME
--- NOTE | 2022-10-18 15:57 | NUR ---
REPORTED OFF TO ZOEY PLUMMER
--- NOTE | 2022-10-18 16:00 | NUR ---
ASSUMED CARE: REPORT RECIEVED FROM ZOEY GRANT. PT UP IN CHAIR WITH SOLE TRIMMER AT BEDSIDE. INTUBATED ON PS WITH SETTINGS 5/5 AND 50% FIO2. LUNG SOUNDS CLEAR, DIMINISHED BASES. PRECEDEX AT 0.3MCG/KG. AFIB AT 90 0N TELE. TF WITH FREE WATER FLUSHES RUNNING. NO ACUTE NEEDS AT THIS TIME.
[2022-10-18 16:07] LABS: Vancomycin, Trough 18.1 ug/mL (5.0-10.0)
--- NOTE | 2022-10-18 18:46 | NUR ---
SHIFT SUMMARY: DR SCOTT CAME TO SEE PT AND PUT HER BACK ON AC MODE WITH SETTINGS 15/500/45/5. PLAN IS TO REMAIN INTUBATED UNTIL FAMILY RETURNS ON WEDNESDAY. CALL TO RT TO GET PT BACK TO BED BUT UNAVAILABLE AT THAT TIME. TOLD RT TO LET US KNOW WHEN THEY ARE AVAILABLE. CENTRAL MELT SPECIALIST AND CONSULTING PROJECT DIRECTOR AWARE WELL. PT REMAINS ON 0.3MCG/KG OF PRECEDEX. NO ACUTE NEEDS OR CONCERNS AT THIS TIME.
--- NOTE | 2022-10-19 05:55 | NUR ---
SHIFT SUMMARY: Patient moved from chair to bed using lift/sling at 1999. She had a small, loose BM for the first time in over a week per the chart. Patient medicated for pain prior to moving to bed and one hour later. She has been more agitated and impulsive tonight. Since she was on VC/AC, I medicated her with 50mcg of fentanyl instead of 25 because she appeared extremely painful and was very agitated. Throughout the night, she became increasingly anxious, trying constantly to free herself from wrist restraints and pull out ET tube. I gave her one IV push of ativan and titrated up precedex and she eventually calmed down. Precedex was weaned back down to 0.3 due to bradycardia in the 50s. Rate converted from A-fib to sinus bradycardia with a first degree block. This morning, she was switched from VC/AC to pressure support and is tolerating well. Medicated with 25mcg of fentanyl instead of 50mcg to avoid respiratory depression. At 0600, she appears comfortable and vitals are stable.
--- NOTE | 2022-10-19 07:17 | NUR ---
ASSUMED CARE: PT RESTING IN BED, INTUBATED. VENT SETTINGS PS 10/5 AND 45% FIO2. NSR ON TELE IN 80S AT THIS TIME. PRECEDEX GTT AT 0.3MCG/KG. BILATERAL WRIST RESTRAINTS IN PLACE. NO FURTHER NEEDS AT THIS TIME.
--- NOTE | 2022-10-19 11:13 | NUR ---
DR POWERS SPOKE WITH PT'S DAUGHTER ON PHONE. REQUESTED PHYSICAL THERAPY FOR RANGE OF MOTION. INSTRUCTED TO GET PT UP IN CHAIR WITH PRECEDEX OFF AND ATTEMPT PHYSICAL THERAPY. CALL TO RT TO GET PT UP IN CHAIR. HOT CELL TECHNICIAN AT BEDSIDE
--- NOTE | 2022-10-19 15:05 | NUR ---
PT HAS BEEN UP IN CHAIR AND OFF PRECEDEX FOR A FEW HOURS. RESERVES CLERK CALLED STAFF TO ROOM AND STATED PT WAS REALLY ANXIOUS AND DAUGHTER WAS TEXTING HIM TELLING HIM TO HAVE US TURN PRECEDEX BACK ON. RELAYED THAT PRECEDEX WAS OFF SO THAT PT COULD BE AWAKE ENOUGH FOR PHYSICAL THERAPY CONSULT THAT DAUGHTER REQUESTED. PHYSICAL THERAPIST CAME TO BEDSIDE AND PERFORMED CONSULT. RESPIRATORY THERAPIST CAME TO BEDSIDE AND CHANGED SETTINGS OF SPONTANEOUS BACK TO 10/5 AND PRECEDEX WAS RESTARTED AT 0.3MCG/KG. RESERVES CLERK STATES THAT DAUGHTER IS PLANNING ON COMING BACK TOMORROW FOR EXTUBATION. DR POWERS MADE AWARE OF THERAPY PROGRESS AND DAUGHTER'S PLANS FOR TOMORROW.
--- NOTE | 2022-10-19 18:14 | NUR ---
SHIFT SUMMARY: PT REMAINS ON SPONTANEOUS WITH SETTINGS 10/5 AND 45% FIO2. FREQUENT SUCTIONING REQUIRED. NSR IN 90S ON TELE. PRECEDEX GTT AT 0.3 FOR ANXIETY, MEDICATED WITH MORPHINE X2. INDUSTRIAL MANAGEMENT TEACHER AT BEDSIDE A MAJORITY OF SHIFT. NO ACUTE NEEDS OR CONCERNS AT THIS TIME.
--- NOTE | 2022-10-19 22:26 | NUR ---
ASSUMED CARE ASSUMED CARE AT 1900. PT INTUBATED. SPONT 10/5 FIO2 45% RR 16-26. PRECEDEX GTT INFUSING. SEE FLOWSHEET FOR TITRATIONS. PT ALERT AND FOLLOWING DIRECTIONS. REACHES FOR ETT. PT SITTING UP IN BED, AND LEANING DOWN TO HANDS. PT SHIFTING SELF FROM SIDE TO SIDE IN BED. WHEN ASKED IF SHE HAD PAIN IN HER BACK, SHE NODDED. REPOSITIONED AND MEDICATED FOR PAIN PER EMAR. PT CONTINUED TO SIT UP AND REACH FOR THE ETT. PRECEDEX TITRATED UP. VSS. SR W/ 1ST DEG BLOCK, RATE 90'S. SBP 140-150'S. NGT W/ TF AT GOAL. AGUILAR IN PLACE W/ TF AT GOAL.
[2022-10-20 04:11] LABS: BASOPHILS ABSOLUTE AUTO 0.07 K/mm3 (0.00-0.23); BASOPHILS PERCENT AUTO 1 % (0-2); EOSINOPHILS ABSOLUTE AUTO 0.39 K/mm3 (0.00-0.68); EOSINOPHILS PERCENT AUTO 3 % (0-6); Hematocrit 25.2 % (33.0-51.0); Hemoglobin 7.8 g/dL (11.5-16.0); IMMATURE GRAN ABSOLUTE AUTO 0.37 K/mm3 (0.00-0.10); IMMATURE GRAN PERCENT AUTO 3 % (0-1); LYMPHOCYTES ABSOLUTE AUTO 0.95 K/mm3 (0.84-5.20); LYMPHOCYTES PERCENT AUTO 7 % (21-46); MONOCYTES PERCENT AUTO 5 % (4-13); Mean Corpuscular Volume 94 fL (80-100); Mean Platelet Volume 11.4 fL (9.1-12.4); NEUTROPHILS PERCENT AUTO 82 % (41-73); NRBC ABSOLUTE 0.03 K/mm3 (0.00-0.02); NRBC Auto 0.2 /100 WBC (0.0-0.2); Platelet Count 312 K/mm3 (150-400); RDW Coefficient Variation 15.6 % (11.7-14.2); RDW Standard Deviation 51.2 fL (35.1-46.3); Red Blood Cell Count 2.69 M/mm3 (3.80-5.20); White Blood Cell Count 13.88 K/mm3 (4.00-11.30)
--- NOTE | 2022-10-20 06:07 | NUR ---
SHIFT SUMMARY THIS AM ETT FOUND TO BE AT 20 CM INSTEAD OF 22 CM W/ SPO2 88-91%. RT IN ROOM AND ADVANCED TO 21 AT LIP. CHEST XRAY DONE AN HOUR PREVIOUS. HOSP CALLED AND AT BEDSIDE. HOSP AGREED W/ CURRENT PLACEMENT. HOSP UNABLE TO VISUALIZE TIP OF OGT BUT VERIFIED PLACEMENT. ETT KINK VISUALIZED. HOSP ORDERED TO MONITOR FOR NOW D/T PT MOST LIKELY BEING EXTUBATED TODAY. SPO2 GREATER THAN 90%. PT ON SPONT T/O NIGHT. FIO2 NOW 50%. PRECEDEX GTT INFUSING. OGT W/ TF AT GOAL. VSS. MAX T 100.0. MEDICATED FOR BACK PAIN X 1 THIS SHIFT. PT LESS ANXIOUS THIS AM. AGUILAR PATENT AND DRAINING TO GRAVITY.
[2022-10-20 06:40] LABS: Albumin, Blood 1.6 g/dL (3.4-5.0); Albumin/Globulin Ratio 0.3 (0.8-1.8); Bilirubin, Total 0.4 mg/dL (0.1-1.0); Bun/Creatinine Ratio 39.8 (12.0-20.0); Calcium, Blood 9.2 mg/dL (8.5-10.1); Creatinine, Blood 1.23 mg/dL (0.40-1.00); Globulin, Blood 4.7 g/dL (2.2-4.0); Magnesium, Blood 1.8 mg/dL (1.6-2.4); Phosphorus, Blood 3.3 mg/dL (2.5-4.9); Potassium, Blood 3.9 mmol/L (3.5-5.5); Total Protein, Blood 6.3 g/dL (6.4-8.2)
--- NOTE | 2022-10-20 09:51 | NUR ---
CARE OF PT ASSUMED AT 0700. PT AWAKE AND ALERT, PRECEDEX AT 0.3MCG FOR VENT CASI. VENT SPONT 10/, 45%. PT HAS LARGE AMT OF SECRETIONS ORAL AND VIA ETT. PT ABLE TO FOLLOW COMMANDS, NODS HEAD TO QUESTIONS, CONTINUES TO PULL HANDS TOWARDS ETT, NODS YES TO TRYING TO TAKE TUBE OUT. PT REDIRECTABLE FOR A SHORT WHILE. PT CALM OVERALL. DR POWERS AT BEDSIDE THIS AM, UPDATE GIVEN, POSSIBLE EXTUBATION TODAY.
--- NOTE | 2022-10-20 11:10 | NUR ---
TUBE FEEDS STOPPED IN ANTICIPATION OF EXTUBATION. PT GIVEN FULL BED BATH W LINEN CHANGED. YEAST LIKE RASH TOP BOTTOM/MICHAEL AREA/INNER THIGHS. NYSTATIN CREAM PLACED. TWO AREAS OF REDNESS/SORES NOTED ON RIGHT AND LEFT BUTTCHEEKS; CLOVER DRSG PLACED. DR POWERS AT BEDSIDE.
--- NOTE | 2022-10-20 11:41 | NUR ---
PT EXTUBATED AT [address] POWERS, PT INITIALLY PLACED ON 5L VIA N/C, SWITCHED TO 6L HIGH FLOW. PT RESTLESS, C/O LOWER BACK PAIN. PT REPOSTIONED SEVERAL TIMES. PT'S DAUGHTER AUDREY AND TRANSPORTER RADIOLOGY AT BEDSIDE.
--- NOTE | 2022-10-20 12:23 | NUR ---
Spiritual care visit conducted. Patient's dtr. Connie and KermitBretJp Luis Fernando are in the hallway to ICU waiting to go into the unit. They are both very anxious about the upcoming extubation. I provide spiritual guidance and prayer. We go in to patient's rm. I provide prayer with the patient prior to extubation and remain in the rm continuing to supply adriano-filled conversation for pt and family before and after extubation until patient is relatively stable. I will continue to remain available to patient and family.
--- NOTE | 2022-10-20 12:30 | NUR ---
PT RESP RATE MID 20'S. SOME MILD STRIDOR NOTED, PT HAS GOOD AIR MOVEMENT. SATS >90%. LUNGS ARE SLIGHTLY DIMINISHED TO BASES. OCC SCATTERED WHEEZE. PT'S TRAY IS CONCERNED ABOUT STRIDOR. DR POWERS CALLED AND AT BEDSIDE SHORTLY AFTER TO SEE PT. RAC. EPI ORDERED AND GIVEN. SOLUMEDROL GIVEN. PT STARTED TO DESATURATE AFTER TREATMENT, NRB MASK PLACED AT 100%. DR POWERS CALLED FOR AIRVO/BIPAP ORDERS. DR KITCHEN IN TO SEE PT. PT'S DAUGHTER REQUEST SPEAKING W CARE MANAGEMENT ABOUT POSSIBLE TRANSITION TO HOSPICE.
--- NOTE | 2022-10-20 12:47 | NUR ---
AIRVO PLACED 50L/70%. SATS 98%. PT APPEARS MORE COMFORTABLE.
--- NOTE | 2022-10-20 15:39 | NUR ---
PT AWOKE FROM NAP SLIGHTLY AGITATED AND WANTING/ATTEMPTING TO GET OUT OF BED PER PT'S DAUGHTER. AT BEDSIDE IMMEDIATELY. PT APPEARED AGITATED BUT ALSO COMPLAINING OF BACK PAIN. FENTANYL 25MCG GIVEN; DISCUSSED W DR POWERS. WITHIN A SHORT PERIOD OF TIME PT BECAME MORE AGITATED W LABORED BREATHING, SATS 88-90%, RESP 30'S. PT INCONTINENT OF BM. RT CALLED FOR BIPAP. UNABLE TO LAY PT FLAT TO CLEAN; KEPT PT UPRIGHT AND QUICKLY CLEANED BM. WITHIN THAT TIME PT IN RESP DISTRESS. NRB MASK PLACED WHILE SWITCHING TO BIPAP. DR POWERS CALLED; RESP MORE LABORED, PT DIAPHORETIC, RESP 40'S, SOME WHEEZING NOTED, COARSE, SATS LOW 80'S. PT AWAKE BUT AGITATED/UNABLE TO FOLLOW COMMANDS. STAT CHEST XRAY ORDERED AND COMPLETED. LASIX 40MG GIVEN. INITIALLY BIPAP SETTINGS 10/5 100%FIO2, DR POWERS INCREASED THE PRESSURE TO 12. PRECEDEX PLACED ON STANDBY PER DR POWERS. FAMILY AT BEDSIDE. PT SLEEPING AT THIS TIME, RATE 14-20, SATS 93%.
--- NOTE | 2022-10-20 16:29 | NUR ---
LATE ENTRY FOR 10/10/22 @ 1300: PT TRANSFERED FROM MEDICAL FLOOR THIS AM, PCU STATUS. PT IS ONLY ORIENTED TO SELF. CONTINUOUSLY TAKING AIRVO OFF DESPITE REORIENTATION EFFORTS AND 1:1 SITTER. PT SEEMS MORE AGITATED WITH 1:1 SITTER. PLACED IN WRIST RESTRAINTS DUE TO PT DESATING TO 79% WHILE AIROVO IS OFF. HOME CAREGIVER CAME IN AND WAS ABLE TO CONVINCE PT TO TAKE SOME PO MEDS. PT DID WELL WITH PO MEDS AND WATER BUT GETS TIRED EASILY. EVEN WITH CAREGIVER AT BEDSIDE PT CONTINUES TO PICK AT LINES, CORDS, AND LINENS. UNABLE TO D/C RESTRAINTS DUE TO THIS.
--- NOTE | 2022-10-20 16:33 | NUR ---
PT BECOMING MORE RESTLESS AND GRABBING AT BIPAP MASK. PRECEDEX RESTARTED AT 0.3MCG.
--- NOTE | 2022-10-20 18:38 | NUR ---
PT AWAKE, RESTLESS, C/O LOWER BACK PAIN. MORE ALERT, ABLE TO ANSWER QUESTIONS APPROPRIATELY. FENTANYL 25MCG'S GIVEN. LINEN'S CHANGED. PT TOLERATED BED CHANGE WELL. NEW CLOVER DRSG'S PLACED TO RIGHT AND LEFT BUTTOCK. PT REMAINED RESTLESS WITH COMPLAINTS OF BIPAP MASK. PRECEDEX INCREASED TO 0.4MCG. FAMILY AT BEDSIDE.
[2022-10-21 04:05] LABS: BASOPHILS ABSOLUTE AUTO 0.04 K/mm3 (0.00-0.23); BASOPHILS PERCENT AUTO 0 % (0-2); EOSINOPHILS ABSOLUTE AUTO 0.17 K/mm3 (0.00-0.68); EOSINOPHILS PERCENT AUTO 1 % (0-6); Hematocrit 23.6 % (33.0-51.0); Hemoglobin 7.2 g/dL (11.5-16.0); IMMATURE GRAN ABSOLUTE AUTO 0.11 K/mm3 (0.00-0.10); IMMATURE GRAN PERCENT AUTO 1 % (0-1); LYMPHOCYTES ABSOLUTE AUTO 1.07 K/mm3 (0.84-5.20); LYMPHOCYTES PERCENT AUTO 9 % (21-46); MONOCYTES ABSOLUTE AUTO 0.62 K/mm3 (0.16-1.47); MONOCYTES PERCENT AUTO 5 % (4-13); Mean Corpuscular HGB 28.9 pg (26.0-34.0); Mean Corpuscular HGB Conc 30.5 g/dL (31.5-36.5); Mean Corpuscular Volume 95 fL (80-100); Mean Platelet Volume 10.8 fL (9.1-12.4); NEUTROPHILS ABSOLUTE AUTO 10.02 K/mm3 (1.96-9.15); NEUTROPHILS PERCENT AUTO 83 % (41-73); NRBC ABSOLUTE 0.02 K/mm3 (0.00-0.02); NRBC Auto 0.2 /100 WBC (0.0-0.2); Platelet Count 326 K/mm3 (150-400); RDW Coefficient Variation 15.5 % (11.7-14.2); Red Blood Cell Count 2.49 M/mm3 (3.80-5.20); White Blood Cell Count 12.03 K/mm3 (4.00-11.30)
[2022-10-21 04:22] LABS: Albumin, Blood 1.6 g/dL (3.4-5.0); Anion Gap 2 mmol/L (6-16); Blood Urea Nitrogen 53 mg/dL (8-24); Bun/Creatinine Ratio 37.3 (12.0-20.0); CO2, Blood 30 mmol/L (21-32); Calcium, Blood 9.2 mg/dL (8.5-10.1); Chloride, Blood 112 mmol/L (98-108); Creatinine, Blood 1.42 mg/dL (0.40-1.00); Glomerular Filtration Rate 36 (60-); Glucose, Blood 124 mg/dL (70-99); Magnesium, Blood 1.9 mg/dL (1.6-2.4); Phosphorus, Blood 4.3 mg/dL (2.5-4.9); Sodium, Blood 144 mmol/L (136-145)
--- NOTE | 2022-10-21 05:24 | NUR ---
SHIFT SUMMARY: At the beginning of my shift, she was on BIPAP at 100% Fi02, sats 100%. As of 0500, she is on 50% fiO2 with sats above 92%. Complained of back pain, K-pad applied for several hours which helped. Now removed. She has been fairly cooperative with the BIPAP, occasionally pulling at it but is easily redirectable. Remains on precedex drip for anxiety, weaned down to 0.2. BP soft, with systolics in the high 80s low 90s and MAPs just about 65. Lungs sound extremely coarse, rhonchi. When I remove the BIPAP briefly for oral care, she sounds stridorous and breathing is labored. On the BIPAP, her breathing is unlabored. She is still only oriented to herself, but is pleasant and cooperative.
--- NOTE | 2022-10-21 12:46 | NUR ---
[facility] visit conducted. Patient's dtr Connie and healthcare liaison Luis Fernando are bedside. Connie is working through many emotions and holding on to her [employer] adriano to help her cope and stabilize her. She talks out her feelings and thoughts and finds the grounding she needs for the moment. I encourage self-care, reinforce helpful attitudes and provide therapeutic listening, anxiety containment, anticipitory grief support and prayer. I also provide prayer and encouragement to the patient. Patient and family responded well and showed signs of reduced stress. I will continue to remain available to patient and family.
--- NOTE | 2022-10-21 17:42 | NUR ---
END OF SHIFT SUMMARY: NEURO: PT A/O X SELF, AT TIMES REMEMBERS SHE IS IN THE HOSPITAL. RECOGNIZES FAMILY MEMBERS AND FOLLOWS COMMANDS. VOICE IS WEAK BUT DAUGHTER STATES PT IS ALWAYS SOFT SPOKEN. CARDIAC: A FIB, RATE 80-110. BP WNL. RESP: TRANSITIONED FROM BIPAP TO AIRVO, FIO2 50%, TOLERATES WELL. LUNGS COARSE/RHONCHI THROUGHOUT. ENCOURAGED COUGH AND DEEP BREATHING. ORAL SUCTIONING PRN. GI: NPO, ST EVAL, PT FAILED. ORDER TO GIVE PO MEDS CRUSHED IN APPLESAUCE OR PUDDING. ST TO REEVAL SWALLOW TOMORROW. MD NOTIFIED. NO DOBHOFF TO BE PLACED TODAY. : AGUILAR TO GRAVITY, PATENT AND DRAINING CLEAR YELLOW URINE. SKIN: UNCHANGED, SCATTERED BRUISING TO BUE. MONITORING BUTTTOCK/COCCYX FOR BREAKDOWN. POSITION CHANGED EVERY 2 HOURS AND PRN TO MAINTAIN SKIN INTEGRITY AND FOR COMFORT. IV: PIV RIGHT FOREARM, PG LEFT UPPER ARM. BOTH INFUSING. D5 1/2NS AT 75ML/HR ORDERED AFTER PATIENT FAILED SWALLOW EVAL. POC GLUCOSE 68 AT NOON CHECK. GIVEN 12.5ML D50 PER HYPOGLYCEMIA PROTOCOL AND RECHECK WAS 95. CONTINUE EVERY 6 HOUR CHECKS PER MD, IV FLUID WITH DEXTROSE NOW INFUSING CONTINUOUSLY. DAUGHTER AND CAREGIVER AT BEDSIDE THROUGHOUT SHIFT, EDUCATED ON PT PROGRESS AND POC. ALL QUESTIONS ANSWERED AND ALLOWED TO BE INVOLVED IN HANDS ON CARE APPROPRIATE.
--- NOTE | 2022-10-21 22:00 | NUR ---
ASSUMED CARE AT 1900 PT LAYING IN BED AND FAMILY MEMBERS AT BEDSIDE; THEY LEFT AROUND 1999. SHE IS ORIENTED TO SELF AND LOCATION; INTERACTING WITH FAMILY APPROPRIATLY; SLOW TO RESPOND AT TIMES; GERNERALIZED WEAKNESS NOTED. ON HIGH FLOW NC 50L AND FIO2 50%; CONGESTED COUGH NOTED AND OCCATIONAL WHEEZES THAT IMPROVE WHEN REPOSITIONED AND AFTER BREATHING TREATMENTS. AFEBRILE. HR 80-110; AFIB NOTED. SBP 120-130'S. SPEECH EVAL STATED THAT PT COULD TAKE PO MEDS CRUSHED IN APPLESAUCE; ATTEMPTED PM MEDS LIKE THIS AND PT DID NOT TOLERATE; INCREASED COUGHING NOTED AFTERWARDS AND SPUTUM NOTED TO HAVE APPLESAUCE IN IT. AGUILAR INPLACE AND DRAINING TO GRAVIYT. D5 1/2NS INFUSING AT 75ML/HR. POWER GLIDE TO AMEENA PATENT WITH DRESSING C/D/I. SEE SHIFT ASSESSMENT FOR FULL ASSESSMENT.
[2022-10-22 03:54] LABS: BASOPHILS ABSOLUTE AUTO 0.08 K/mm3 (0.00-0.23); BASOPHILS PERCENT AUTO 1 % (0-2); EOSINOPHILS ABSOLUTE AUTO 0.26 K/mm3 (0.00-0.68); EOSINOPHILS PERCENT AUTO 2 % (0-6); Hematocrit 24.8 % (33.0-51.0); Hemoglobin 7.3 g/dL (11.5-16.0); IMMATURE GRAN ABSOLUTE AUTO 0.11 K/mm3 (0.00-0.10); IMMATURE GRAN PERCENT AUTO 1 % (0-1); LYMPHOCYTES ABSOLUTE AUTO 1.07 K/mm3 (0.84-5.20); LYMPHOCYTES PERCENT AUTO 9 % (21-46); MONOCYTES ABSOLUTE AUTO 0.61 K/mm3 (0.16-1.47); MONOCYTES PERCENT AUTO 5 % (4-13); Mean Corpuscular HGB 28.6 pg (26.0-34.0); Mean Corpuscular HGB Conc 29.4 g/dL (31.5-36.5); Mean Corpuscular Volume 97 fL (80-100); Mean Platelet Volume 10.5 fL (9.1-12.4); NEUTROPHILS ABSOLUTE AUTO 9.43 K/mm3 (1.96-9.15); NEUTROPHILS PERCENT AUTO 82 % (41-73); Platelet Count 397 K/mm3 (150-400); RDW Coefficient Variation 16.1 % (11.7-14.2); RDW Standard Deviation 52.9 fL (35.1-46.3); Red Blood Cell Count 2.55 M/mm3 (3.80-5.20); White Blood Cell Count 11.56 K/mm3 (4.00-11.30)
[2022-10-22 04:09] LABS: Bun/Creatinine Ratio 31.5 (12.0-20.0); Creatinine, Blood 1.43 mg/dL (0.40-1.00); Phosphorus, Blood 4.4 mg/dL (2.5-4.9); Potassium, Blood 4.1 mmol/L (3.5-5.5)
--- NOTE | 2022-10-22 07:45 | NUR ---
END OF SHIFT SUMMARY PT WAS ABLE TO SLEEP FOR ABOUT FIVE HOURS LAST NIGHT. AROUND 0000 PT WAS MORE FIDGETY AND C/O SOME MILD PAIN IN HER LOWER BACK. PRN ATIVAN AND FENTAYL GIVEN AND HELPFUL. NO CHANGES IN NEURO STATUS OVER THE SHIFT. PT ON AIRVO FOR MOST OF THE SHIFT WITH SETTINGS 50L AND 50% FIO2; AROUND 0530 PT STARTED TO DESAT TO THE LOW 80'S AND WAS NOT RECOVERING; EVENTUALLY SWITCHED OVER TO BIPAP SETTINGS 18/8, FIO2 100%; IMPROVEMENT NOTED. HR 70-80'S. BP STABLE. NPO ALL NIGHT. AGUILAR IN PLACE AND DRAINING TO GRAVITY. D5 1/2NS INFUSING ALL NIGHT. REPORT GIVEN TO DAISHA GREER.
--- NOTE | 2022-10-22 08:56 | NUR ---
Spiritual care visit conducted. Dtr Connie and CG Luis Fernando bedside. I provide prayer and a calming presence as dtr is anxious about patient's set backs during the night. Family appear comforted. I will remain available
--- NOTE | 2022-10-22 10:20 | NUR ---
"Spiritual Care | Hallway conversation with Pts. daughter Daughter approached student development specialist and gave an update on the Pts. condition. Daughter displayed evidence of engagement and awareness. Encouragement was given."
--- NOTE | 2022-10-22 18:44 | NUR ---
END OF SHIFT SUMMARY: NEURO: A/O X SELF, OCCASIONALLY REMEMBERS SHE IS IN THE HOSPITAL. DROWSY TODAY, MEDICATED X2 WITH FENTANYL 25MCG IV FOR C/O LOW BACK PAIN. CARDIAC: ALTERNATES BETWEEN SR AND ATRIAL FIBRILLATION, RATE CONTROLLED. BP WNL. RESP: BIPAP UNTIL 1400, TRANSITIONED TO AIRVO 50/65%. TOLERATING WELL, 02 SAT > 92%, PLETH ON EAR, PLACEMENT ALTERNATED. LUNGS CLEAR AND DIMINISHED, COUGH INFREQUENT, SOUNDS LOOSE BUT NO SPUTUM PRODUCTION/EXPECTORATION. ENCOURAGED DEEP BREATHING. GI: DOBHOFF PLACED TODAY, VERIFIED PLACEMENT VIA CXR. GLUCERNA STARTED AT 40ML/HR WITH 250ML H2O FLUSHES EVERY 4 HOURS. DENIES NAUSEA. NO BM TODAY : AGUILAR, UO DECREASED SIGNIFICANTLY THIS AM WITH ONLY 60ML UO IN 3 HOURS. PT C/O ABDOMINAL/FLANK DISCOMFORT. FLUSHED AGUILAR WITH 60ML, 900ML UO RETURNED. SOME SEDIMENT NOTED, CHANGED COLLECTION SYSTEM. TOTAL 1160ML UO. SKIN: INTACT. TURNED EVERY 2 HOURS AND PRN TO MAINTAIN SKIN INTEGRITY AND FOR COMFORT. NO CHANGES TO SKIN. IV: PG TO LEFT UPPER ARM, PIV TO RIGHT FOREARM. IVF STOPPED AFTER TF STARTED PER DR. POWERS. 2 DAUGHTERS, GRANDDAUGHTER AND CAREGIVER ALTERNATED VISITING AT BEDSIDE TODAY. ALL UPDATED ON POC AND CURRENT CONDITION
--- NOTE | 2022-10-22 22:00 | NUR ---
ASSUMED CARE AT 1900 PT LAYING IN BED AT SHIFT CHANGE. SHE IS ALERT AND ROIENTED TO SELF AND FAMILY; DOESN'T KNOW DATE, LOCATION, OR SITUATION; GENERALIZED WEAKNESS NOTED. ON ARIVO WITH SETTINGS 50L, FIO2 60%; PLACED ON BIPAP WITH SETTINGS 18/8, FIO2 80% AND TITRATING DOWN. SINUS RHYTHM WITH HR IN 80'S. BP STABLE SBP 120'S. TUBE FEED INFUSING AT GOAL OF 40ML/HR WITH 250ML FLUSHES Q4HR. AGUILAR IN PLACE AND DRAINING TO GRAVITY; MONITORING SEDAMENT TO POSSIBLY CHANGE OUT AGUILAR IF IT OCCLUDES. POWER GLIDE TO AMEENA PATENT AND DRESSING C/D/I. SEE SHIFT ASSESSMENT FOR FULL ASSESSMENT.
[2022-10-23 05:51] LABS: BASOPHILS ABSOLUTE AUTO 0.08 K/mm3 (0.00-0.23); BASOPHILS PERCENT AUTO 1 % (0-2); EOSINOPHILS PERCENT AUTO 3 % (0-6); Hematocrit 25.9 % (33.0-51.0); Hemoglobin 7.8 g/dL (11.5-16.0); IMMATURE GRAN ABSOLUTE AUTO 0.08 K/mm3 (0.00-0.10); IMMATURE GRAN PERCENT AUTO 1 % (0-1); LYMPHOCYTES ABSOLUTE AUTO 0.97 K/mm3 (0.84-5.20); LYMPHOCYTES PERCENT AUTO 7 % (21-46); MONOCYTES ABSOLUTE AUTO 0.51 K/mm3 (0.16-1.47); MONOCYTES PERCENT AUTO 4 % (4-13); Mean Corpuscular HGB Conc 30.1 g/dL (31.5-36.5); Mean Corpuscular Volume 96 fL (80-100); Mean Platelet Volume 10.5 fL (9.1-12.4); NEUTROPHILS ABSOLUTE AUTO 11.12 K/mm3 (1.96-9.15); NEUTROPHILS PERCENT AUTO 85 % (41-73); Platelet Count 420 K/mm3 (150-400); RDW Coefficient Variation 16.5 % (11.7-14.2); RDW Standard Deviation 53.1 fL (35.1-46.3); Red Blood Cell Count 2.69 M/mm3 (3.80-5.20); White Blood Cell Count 13.16 K/mm3 (4.00-11.30)
[2022-10-23 06:17] LABS: Bun/Creatinine Ratio 26.9 (12.0-20.0); Calcium, Blood 9.1 mg/dL (8.5-10.1); Creatinine, Blood 1.3 mg/dL (0.40-1.00); Potassium, Blood 4.2 mmol/L (3.5-5.5)
--- NOTE | 2022-10-23 07:32 | NUR ---
END OF SHIFT SUMMARY PT HAD A RESTLESS NIGHT; CHALLENGING FOR HER TO KEEP EITHER THE AIRVO OR THE BIPAP ON. NO CHANGES IN NEURO STATUS, CONT TO BE ORIENTED TO SELF; PT RESTLESS AND FIDGETY MOST OF THE NIGHT, SHE IS REDIRECTABLE BUT FORGETS QUICKLY TO NOT PULL AT OXYGEN; PRN ATIVAN GIVEN ONCE AND NOT HELPFUL; PRECEDEX GTT STARTED AROUND 0200 AND TITRATED UP TO 0.4MCG/KG/HR. CURRENTLY ON AIRVO MASK AT 80L, FIO2 100%, SPO2 HIGH 80'S TO LOW 90'S; CONT TO HAVE MOIST, CONGESTIVE COUGH. AFEBRILE. HR 80-90'S. BP STABLE. TF INFUSING AT GOAL VIA DOBHOFF. AGUILAR IN PLACE WITH 1000ML OUTPUT. REPORT GIVEN TO AM RN.
--- NOTE | 2022-10-23 10:13 | NUR ---
Spiritual care visit conducted. Patient is lying bed and sleeping. Family meets with Dr. Pacheco and I provide emotional support, I calming presence and then go in with family to the patient's rm and they request prayer. I gladly provide prayer, for which the family voices much gratitude. They show signs of being comforted. I will continue to remain available to patient and fmaily.
--- NOTE | 2022-10-23 12:30 | NUR ---
UPDATE: FAMILY CALLS RN TO BEDSIDE, REQUESTS PT BE TAKEN OFF SEDATION & BE AWAKE TO SIT UP & INTERACT W/ FAMILY. DISCUSSED W/ NEDITA & SHE AGREES, IT WOULD BE BEST FOR THE PT TO REMAIN COMFORTABLE W/ LOW DOSE PRECEDEX & HAVE UNINTERRUPTED REST UNTIL AT LEAST TOMORROW. FAMILY EDUCATED THAT ACTIVITY IS IMPORTANT, HOWEVER REST IS MOST IMPORTANT @ THIS TIME. FAMILY EXPRESS THEIR DISAGREEMENT. WILL CONTINUE TO EDUCATE & ANSWER FAMILY QUESTIONS.
--- NOTE | 2022-10-23 14:18 | NUR ---
Spoke with potients daughter about decision making process. Gave her the hard choices for loving families book. Open discussion about forced feeding and advancement of dementia and prognosis. Supportive discussion about acceptance and to musch suffering. Pt daughter was tearfull. Sh is hoping they can get back to some point of recovery for ahwile longer. She is diatraught because she has to go back to work. Advised that we will check on her often and support her care. Will follow up.
--- NOTE | 2022-10-23 14:48 | NUR ---
UPDATE: PT APPEARS AGITATED, INDICATES SHE WANTS THE BED SALEH. PT CONFUSED, UNABLE TO FOLLOW COMMANDS, ATTEMPTING TO GET OUT OF BED. UNABLE TO BE REDIRECTED, ADD'l STAFF CALLED TO ASSIST. PT INCONTINENT OF BOWEL, GIVEN FULL BED BATH & LINEN CHANGE. ONCE REPOSITIONED, PT ABLE TO REST, RETURNED QUICKLY TO SLEEPING. DR CRUZ @ BEDSIDE FOR AFTERNOON ROUNDS, UPDATED ON PT PROGRESSION. PLAN TO MAINTAIN PRECEDEX gtt FOR PT AGITATION & ANXIETY; PLAN TO TITRATE PRECEDEX OFF TOMORROW & GET PT UP TO CHAIR. FAMILY UPDATED.
--- NOTE | 2022-10-23 17:46 | NUR ---
UPDATE: FAMILY AGAIN EDUCATED OF THE IMPORTANCE OF UNITERRUPTED SLEEP & KEEPING SEDATION @ A LOW RATE FOR ANXIETY & AGITATION. DAUGHTER STS SHE WANTS TO HAVE THE PT RECEIVE CPT NOW & STOP SEDATION. REQUESTS RN DISCUSS AGAIN W/ ANTHONY. WILL ADDRESS Sima CRUZ ONCE AVAILABLE.
--- NOTE | 2022-10-23 20:30 | NUR ---
ASSUMED CARE PT IS SOMNULENT AND CONFUSED. APPEARS TO UNDERSTAND COMMANDS; ALSO APPEARS TO BE ALERT TO SELF AND SURROUNDINGS AT TIMES. PT SPEAKS VERY SOFTLY AND DOES NOT USE COMPLETE SENTENCES, DIFFICULT TO UNDERSTAND WHAT SHE IS SAYING. SPO2 >92% ON BIPAP AT 16/10 FIO2 100%. INITIALLY ON AIRVO, BUT AFTER PROVIDING NT SUCTIONING PT DESATTED DOWN INTO THE MID 70'S AND WOULD NOT COME UP. COPIOUS AMOUNTS OF RED, TENACIOUS, THICK SECRETIONS SUCTIONED OUT. PT HAS A WEAK NON-PRODUCTIVE COUGH. PRECEDEX @ 0.4MCG/KG/HR. AGUILAR PATENT AND DRAINING TO GRAVITY.
[2022-10-24 04:11] LABS: BASOPHILS ABSOLUTE AUTO 0.08 K/mm3 (0.00-0.23); BASOPHILS PERCENT AUTO 1 % (0-2); EOSINOPHILS ABSOLUTE AUTO 0.39 K/mm3 (0.00-0.68); EOSINOPHILS PERCENT AUTO 3 % (0-6); Hematocrit 25.4 % (33.0-51.0); Hemoglobin 7.7 g/dL (11.5-16.0); IMMATURE GRAN ABSOLUTE AUTO 0.09 K/mm3 (0.00-0.10); IMMATURE GRAN PERCENT AUTO 1 % (0-1); LYMPHOCYTES ABSOLUTE AUTO 0.92 K/mm3 (0.84-5.20); LYMPHOCYTES PERCENT AUTO 8 % (21-46); MONOCYTES ABSOLUTE AUTO 0.36 K/mm3 (0.16-1.47); MONOCYTES PERCENT AUTO 3 % (4-13); Mean Corpuscular HGB 29.5 pg (26.0-34.0); Mean Corpuscular HGB Conc 30.3 g/dL (31.5-36.5); Mean Corpuscular Volume 97 fL (80-100); Mean Platelet Volume 10.5 fL (9.1-12.4); NEUTROPHILS ABSOLUTE AUTO 10.04 K/mm3 (1.96-9.15); NEUTROPHILS PERCENT AUTO 85 % (41-73); Platelet Count 421 K/mm3 (150-400); RDW Coefficient Variation 16.7 % (11.7-14.2); RDW Standard Deviation 54.3 fL (35.1-46.3); Red Blood Cell Count 2.61 M/mm3 (3.80-5.20); White Blood Cell Count 11.88 K/mm3 (4.00-11.30)
[2022-10-24 04:29] LABS: Magnesium, Blood 1.9 mg/dL (1.6-2.4)
[2022-10-24 04:30] LABS: Albumin, Blood 1.7 g/dL (3.4-5.0); Anion Gap 3 mmol/L (6-16); Blood Urea Nitrogen 39 mg/dL (8-24); Bun/Creatinine Ratio 28.5 (12.0-20.0); CO2, Blood 28 mmol/L (21-32); Calcium, Blood 9.1 mg/dL (8.5-10.1); Chloride, Blood 112 mmol/L (98-108); Creatinine, Blood 1.37 mg/dL (0.40-1.00); Glomerular Filtration Rate 38 (60-); Glucose, Blood 184 mg/dL (70-99); Phosphorus, Blood 2.8 mg/dL (2.5-4.9); Potassium, Blood 4.4 mmol/L (3.5-5.5); Sodium, Blood 143 mmol/L (136-145)
--- NOTE | 2022-10-24 04:57 | NUR ---
SHIFT SUMMARY PT IS A&O X2; MAP >65; SPO2 >92% ON CPAP 10, 85%. PRECEDEX IS AT 0.4MCG/KG/HR. PT IS ORIENTED TO SELF AND SURROUNDINGS, CONFUSED AT TIMES, AND FOLLOWS COMMANDS APPROPRIATELY. MUMBLES WHEN ASKED QUESTIONS. PT WAS NOT TOLERATING BIPAP AND WAS MOVED TO AIRVO, BACK TO BIPAP, AND IS NOW ON CPAP, WHICH PT SEEMS TO BE TOLERATING WELL. PT HAD ONE LIQUID BROWN STOOL. AGUILAR CATHETER PATENT AND DRAINING TO GRAVITY. PT HAS A WEAK COUGH, BUT IS ABLE TO PROVIDE A STRONG COUGH WHEN NT SUCTIONING. PERFORMED TWICE TONIGHT W/ MODERATE AMOUNTS OF RED, THICK, TENACIOUS SECRETIONS.
--- NOTE | 2022-10-24 13:21 | NUR ---
Received call from Pt's Primary RN Vero reporting family is requesting Palliative Care visit. Pt resting in bed, sedated on precedex, and on CPAP. Reviewed plan of care with Vero. Met with Pt's daughter Connie and son Luis Fernando out in [place]. Connie reports family was thinking that end of life discussions were needed to discuss but is unsure now that CT results are back. Listened as Connie reports seeing a wax and km condition with Pt. She requests to know more about comfort care if Pt does not improve. Gentle education on comfort care philosophy with V/U made by family. Continued therapeutic listening and answered questions. Family reports plan to continue current plan of care and will consider comfort care in the future if needed. Family expresses appreciation and reports no other concerns at this time. Palliative Care will remain available
--- NOTE | 2022-10-24 13:37 | NUR ---
REASSESSMENT PRECEDEX WAS TITRATED OFF THIS AM AND PT HAS BEEN RESTLESS BUT ABLE TO BE MANAGED BY HER FAMILY. PT WENT FOR CT OF HER ABDOMEN TODAY AFTER HER XRAY SHOWED POSSIBLE AIR UNDER HER DIAPHRAGM. TUBE FEEDING WAS STOPPED UNTIL THE CT RESULTS CAME BACK AND THEN DR. CRUZ GAVE OK TO RESTART THE FEEDINGS. PT IS ALERT, ORIENTED TO HERSELF AND FAMILY. LUNGS ARE COARSE. CPAP DEPENDENT. ATTEMPTED HI FLOW CANNULA/DELMAR BUT PT DESATURATED AFTER ABOUT 10 MINUTES. PT DID TOELRATE IT LONG ENOUGH FOR REALLY GOOD ORAL CARE TO BE PERFORMED AND SOEM CASTS TO BE CLEANED OUT OF HER MOUTH. AFIB WITH RATE IN THE 110S,. BP ELEVATED, PAIN MEDICATION GIVEN. PT HAD MULTIPLE LIQUID STOOLS AND BOTTOM IS ALREADY EXCORIATED SO RECTAL TUBE PLACED. AGUILAR DRAINING YELLOW URINE. PT'S VANESSA AND CAREGIVER HAVE BEEN AT THE BEDSIDE THROUGHOUT THE DAY. PT'S DAUGHTER SYMONE CAME OUT AND SAID THAT WHEN HER NIECE GETS HERE THEY ARE PLANNING ON SWITCHING TO COMFORT CARE. DR. KITCHEN NOTIFIED. PALLIATIVE CARE AWARE.
--- NOTE | 2022-10-24 14:31 | NUR ---
Received call that daughter would like to speak with PC again. Met with daughter Connie out in [place]. She reports family has elected to move forward with comfort care once cousin has arrived today to see Pt. Offered emotional support and validated concerns. Answered questions and continued therapeutic listening. Connie expresses appreciation and reports no other concerns at this time. Spoke with Dr Bocanegra and discussed case. Placed comfort care order and comfort care order set per V/O from Dr Bocanegra. Primary RN Vero will D/C maintenance medications and nursing orders once family is ready to implement comfort measures. Palliative Care will remain available.
--- NOTE | 2022-10-24 18:31 | NUR ---
SHIFT SUMMARY/COMFORT CARE PT CONTINUED TO GET MORE RESTLESS AND AGITATED THE DAY PROGRESSED. SHE WAS CONSTANTLY TRYING TO GET OUT OF BED, REQUIRING FAMILY TO STAY AT THE BEDSIDE, HOLDING HER HANDS, ATTEMPTING TO REDIRECT HER. PT'S DAUGHTER HAD WANTED THE PRECEDEX TURNED OFF TODAY SO PT WOULD BE MORE ALERT, BUT THIS AFTERNOON SHE STARTED REQUESTING PAIN MEDICATION FOR PT AND ANXIETY MEDS. MEDICATIONS WERE GIVEN WITH A SHORT LIVED EFFECT BEFORE SHE GOT RESTLESS AGAIN. AFTER TALKING WITH HER FAMILY, PT'S VANESSA INFORMED THIS RN THAT ONCE ANOTHER OF THE PT'S GRANDDAUGHTERS GOT HERE IN A COUPLE HOURS THAT THEY WOULD LIKE TO MOVE TO COMFORT CARE. PT'S VANESSA REQUESTED TO TALK WITH CRUZ FROM PALLIATIVE CARE AGAIN, CRUZ WAS NOTIFIED, AND DR. KITCHEN AND DR. CRUZ WERE NOTIFIED OF THE ANTICIPATED SWITCH TO COMFORT CARE THIS EVENING. WHILE WAITING FOR THE LAST FAMILY TO ARRIVE PT CONTINUED TO BE AGITATED SO VANESSA REQUESTED THE PRECEDEX TO BE RESTARTED. PT'S VANESSA EXPRESSED A LOT OF ANXIETY ABOUT PT BEING SHORT OF BREATH WHEN TAKEN OFF CPAP. THIS NURSE DISCESSED THE MEDICATIONS AVAILABLE AND MADE A PLAN WITH HER FOR MEDICATING AND TITRATING DOWN THE OXYGEN. WHEN PT'S LAST FAMILY HERE AND PT'S VANESSA SAID THEY WERE READY, PT MEDICATED WITH MORPHINE AND FENTANYL, CPAP SWITCHED TO HIGH FLOW CANNULA. PT APPEARED COMFORTABLE SO OXYGEN AND FLOW TITRATED DOWN. PT CONTINUED TO APPEAR COMFORTABLE SO SIWTCHED PT TO NASAL CANNULA. CONTINUING TO MEDICATE PT FOR ANY SIGNS OF DISCOMFORT. NASAL CANNULA NOW AT 2L. PT'S FAMILY AT THE BEDSIDE. SOURCING ASSOCIATE WAS REQUESTED, [facility] NOTIFIED.
--- NOTE | 2022-10-24 19:37 | NUR ---
ASSUMED CARE FAMILY AT BEDSIDE, ADMINISTERED MORPHINE PER EMAR W/ PT APPEARING TO HAVE SOME AIR HUNGER. [employer] CALLED AT 1932. RUNNING SPECIALIST IN BEFORE PT PASSED. CONFIRMED W/ JENARO WYNNE RN.
--- NOTE | 2022-10-24 19:46 | NUR ---
Call back - Pt's family was gathered around and shared stories of pt's life. 2 daughters were present along with grandchildren. The family see pt in positive life and their adriano provides context to pt's current status. Verbal prayer extended for comfort and encouragement. Shortly thereafter, pt passes confirmed by 2 Rn's. Family were grieving appropriately, embracing and comforting each other. Daughter Romy reports pt TOD was 19.32.
== END 2022-10-24 19:32 | DRG 207 ==
LOC: ER 11:55 → ICUW 14:56 → PCU 14:56 → MEDS 14:56 → PCU 16:45 → MEDS 17:12 → ICUW 10-10 08:54 → PCU 10-10 14:47 → ICUW 10-11 15:03
PROVIDERS: Internal Medicine; Internal Medicine Critical Care Medicine; Student in an Organized Health Care Education/Training Program; ADMIT Family Medicine
PROC: 5A1955Z Respiratory Ventilation, Greater than 96 Consecutive Hours (ICD-10-PCS; principal; 2022-10-11)
PROC: 0BH18EZ Insertion of Endotracheal Airway into Trachea, Via Natural or Artificial Opening Endoscopic (ICD-10-PCS; 2022-10-11)
PROC: 0BCB8ZZ Extirpation of Matter from Left Lower Lobe Bronchus, Via Natural or Artificial Opening Endoscopic (ICD-10-PCS; 2022-10-11)
PROC: 0BC88ZZ Extirpation of Matter from Left Upper Lobe Bronchus, Via Natural or Artificial Opening Endoscopic (ICD-10-PCS; 2022-10-11)
PROC: 0BC78ZZ Extirpation of Matter from Left Main Bronchus, Via Natural or Artificial Opening Endoscopic (ICD-10-PCS; 2022-10-11)
PROC: 0CC7XZZ Extirpation of Matter from Tongue, External Approach (ICD-10-PCS; 2022-10-11)
PROC: 0BC18ZZ Extirpation of Matter from Trachea, Via Natural or Artificial Opening Endoscopic (ICD-10-PCS; 2022-10-11)
DX: J96.01 Acute respiratory failure with hypoxia (principal); J69.0 Pneumonitis due to inhalation of food and vomit; K66.1 Hemoperitoneum; I50.32 Chronic diastolic (congestive) heart failure; E87.1 Hypo-osmolality and hyponatremia; J98.11 Atelectasis; F01.54 Vascular dementia, unspecified severity, with anxiety; Z51.5 Encounter for palliative care; Z66 Do not resuscitate; Z20.822 Contact with and (suspected) exposure to COVID-19; E11.22 Type 2 diabetes mellitus with diabetic chronic kidney disease; N18.2 Chronic kidney disease, stage 2 (mild); J43.9 Emphysema, unspecified; E03.9 Hypothyroidism, unspecified; I48.91 Unspecified atrial fibrillation; E11.610 Type 2 diabetes mellitus with diabetic neuropathic arthropathy; I25.2 Old myocardial infarction; I25.10 Atherosclerotic heart disease of native coronary artery without angina pectoris; F32.A Depression, unspecified; G47.33 Obstructive sleep apnea (adult) (pediatric); Z99.81 Dependence on supplemental oxygen; Z86.73 Personal history of transient ischemic attack (TIA), and cerebral infarction without residual deficits; Z88.8 Allergy status to other drugs, medicaments and biological substances; Z79.82 Long term (current) use of aspirin; Z79.84 Long term (current) use of oral hypoglycemic drugs; Z79.899 Other long term (current) drug therapy
CPT/HCPCS: 0202U; 0241U; 31500; 31720; 36415; 51700; 51702; 71045; 71046; 71250; 74176; 80048; 80053; 80069; 80202; 81001; 82947; 83036; 83605; 83735; 84100; 84145; 84443; 85025; 85027; 87040; 87070; 87205; 92610; 93005; 93010; 94002; 94003; 94640; 94660; 94664; 94667; 94668; 94762; 96361; 96374; 96375; 97110; 97161; 97164; 97166; 99285-25; A9270; C1751; C9113; J0456; J0692; J0696; J1644; J1650; J1815; J1940; J2001; J2060; J2250; J2270; J2370; J2543; J2704; J2930; J3010; J3370; J3475; J3480; J7030; J7042; J7050; J7060